=== PATIENT | female | born 1955 | race Caucasian/White ===

== ENCOUNTER → 2016-08-11 | Outpatient (CLI) | payer BC ==
--- NOTE | 2016-08-11 09:50 | MR ---
"EXAMINATION TYPE: MR lumbar spine wo con DATE OF EXAM: 08/11/2016 8:24 AM COMPARISON: Prior MRI lumbar spine May 16, 2013 HISTORY: Other spondylosis with myelopathy per order. Sharp low back pain for 2 months after fall on ice injury per patient with pain radiating into right buttocks and outer thigh. TECHNIQUE: Multiplanar, multisequence imaging of the lumbar spine is performed without IV contrast. FINDINGS: Sagittal images of the lumbar spine show alignment to appear satisfactory. There is new mil d height loss with suggestion of diminished T1 and increased T2 signal consistent with subacute compr ession fracture involving superior L1 endplate correlates with history of trauma 2 months ago. There is redemonstration of multilevel disc desiccation. There is redemonstration of mild to moderate disc space narrowing L1-L2 level and moderate to advanced disc space narrowing with vacuum disc phenomeno n and mild spurring at L5-S1 level. The conus medullaris remains normal in position and signal ending at mid L1 vertebral body level. The bone marrow signal intensity is overall heterogeneous. There is mild multilevel anterior spurring present. Axial images show the T12-L1 disc space to appear within normal limits. There is some anterior spinal canal effacement due to slight posterior retropulsion on axial image 28 involving central and left p aracentral spinal canal. Axial images at L1-L2 level show persistent mild to moderate broad disc bulge mildly effacing anterio r thecal sac, bilateral neural foramina remain patent. Axial images at L2-L3 level is felt to remain within normal limits. Axial images at L3-L4 level show mild broad based posterior disc protrusion minimally effacing anteri or thecal sac on axial image 13, bilateral neural foramina are patent. Axial images at L4-L5 level show mild to moderate facet degenerative changes and ligamentum flavum hy pertrophy with mild broad-based posterior disc protrusion minimally effacing anterior thecal sac on a xial image 8. There is mild bilateral anterior inferior neural foraminal narrowing at this level iden tified. No significant change from prior study is seen. Axial images at the L5-S1 level show mild facet degenerative changes bilaterally. There is central di sc protrusion seen. Spinal canal is preserved. There is mild to moderate bilateral anterior inferior neural foraminal narrowing at this level redemonstrated. No significant change from prior study is se en. On current exam there are small dependent gallstones now identified on axial image 18. There are susp ected simple parapelvic cysts in both kidneys seen better on current study versus prior. IMPRESSION: New mild compression fracture suspected subacute in age with some mild posterior retropul romelia of the superior posterior L1 vertebra effacing spinal canal. Multilevel degenerative changes in lumbar spine are redemonstrated as detailed above without significant progression from prior exam. A Yellow message has been communicated to Mathew West MD via the [employer] | Critical Result sy stem on 08/11/2016 9:47 AM, Message ID [id number]."
== END | disposition home or self-care (01) ==
LOC: RADMRIMAIN 07:46
PROVIDERS: ATTEND Internal Medicine
DX: M51.36 Other intervertebral disc degeneration, lumbar region (principal); M51.26 Other intervertebral disc displacement, lumbar region; M48.06 Spinal stenosis, lumbar region; M47.16 Other spondylosis with myelopathy, lumbar region
CPT/HCPCS: 72148

== ENCOUNTER → 2017-04-26 | Outpatient (CLI) | payer BC ==
--- NOTE | 2017-05-19 11:53 | P.ARTDOP ---
Arterial Doppler LOWER EXTREMITY ARTERIAL DOPPLER: DATE OF SERVICE: 04/26/2017 Reason for study: Right leg pain. Doppler waveforms: Multiphasic bilaterally throughout. Pulse volume recording: Normal configurations. Pressure gradients: None. Ankle-brachial indices: Greater than 1 bilaterally. Toe pressures: [] on the right, [] on the left Impression: Normal study.
--- NOTE | 2017-05-26 11:47 | P.ARTDOP ---
Arterial Doppler LOWER EXTREMITY ARTERIAL DOPPLER: DATE OF SERVICE: 04/26/[address] right leg pain Doppler wavmultiphasic bilaterally throughout Pulse volume recording: normal configuration Pressure gradiants none Ankle-brachial indices: [greater than one bilaterally. Toe pressures: [] on the right, [] on the left Impression: Normal study
== END | disposition home or self-care (01) ==
LOC: RADUSWWP 10:23
PROVIDERS: ATTEND Internal Medicine
DX: I73.9 Peripheral vascular disease, unspecified (principal)
CPT/HCPCS: 93923

== ENCOUNTER 2020-08-06 12:10 | Observation (INO) | payer BC ==
[2020-08-06] MEDS ORDERED: AMPICILLIN-SULBACTAM 3 GM in SODIUM CHLORIDE 0.9% 100 ML IVPB STA (12:49)
[2020-08-06] MEDS ORDERED: SODIUM CHLORIDE 0.9% 1,000 ML IV STA (12:49)
[2020-08-06] MEDS ORDERED: ONDANSETRON 4 MG/2 ML VIAL IVP STA (12:49)
[2020-08-06] MEDS ORDERED: NALOXONE 0.4 MG/ML 1 ML VIAL IV PRN (13:17)
--- NOTE | 2020-08-06 13:17 | ED ---
Skin/Abscess/FB HPI - General Chief complaint: Skin/Abscess/Foreign Body Stated complaint: neck pain Time Seen by Provider: 08/06/20 12:19 Source: patient Limitations: no limitations - History of Present Illness Initial comments: Patient is a 65-year-old female presenting to the emergency Department with complaints of an abscess on her neck 1 week. Patient states it started out as a small pimple and rapidly enlarged. Patient went to her primary care doctor's office 5 days ago, was started on antibiotics, Augmentin and clindamycin and was also sent for a CT of her neck. Patient states that medications have been making her very nauseous, vomiting and she's not been able to keep anything down. Patient went for his computed tomography scan yesterday and her doctor's office called her today and told her to go into the ER for admission. Patient states the abscess on the left side of her neck seems to be getting bigger as well. She also states she noticed some redness extending down her neck. She denies any fever or chills. She has had nausea and vomiting and a little bit of diarrhea from her medications. She denies any chest pain or shortness of breath. No further complaints at this time. Upon arrival to the ER, she is slightly tachycardia at 109, rest of vitals are normal. - Related Data Home Medications Medication Instructions Recorded Confirmed Gabapentin [Neurontin] 300 mg PO BID 08/10/17 08/06/20 Ramipril 10 mg PO DAILY 08/10/17 08/06/20 Amoxic-Pot Clav 875-125Mg 1 tab PO Q12HR 08/06/20 08/06/20 [Augmentin 875-125] Ciprofloxacin HCl [Cipro] 500 mg PO Q12HR 08/06/20 08/06/20 HYDROcodone/APAP 5-325MG [[place] 1 tab PO BID 08/06/20 08/06/20 5-325] Zolpidem [Ambien] 10 mg PO HS 08/06/20 08/06/20 Allergies Allergy/AdvReac Type Severity Reaction Status Date / Time Sulfa (Sulfonamide Allergy Swelling Verified 08/06/20 15:12 Antibiotics) Review of Systems ROS Statement: Those systems with pertinent positive or pertinent negative responses have been documented in the HPI. ROS Other: All systems not noted in ROS Statement are negative. Past Medical History Past Medical History: Hypertension Additional Past Medical History / Comment(s): HYPOGLYCEMIC History of Any Multi-Drug Resistant Organisms: None Reported Past Surgical History: Appendectomy, Section, Tonsillectomy Additional Past Surgical History / Comment(s): COLONOSCOPY Past Anesthesia/Blood Transfusion Reactions: No Reported Reaction Past Psychological History: No Psychological Hx Reported Smoking Status: Current every day smoker Past Alcohol Use History: None Reported Past Drug Use History: None Reported - Past Family History Father Family Medical History: Cancer Mother Family Medical History: Cancer Sister(s) Family Medical History: Cancer General Exam - General Exam Comments Initial Comments: GENERAL: Patient is well-developed and well-nourished. Patient is nontoxic and in no acute distress. HEAD: Atraumatic, normocephalic. EYES: Pupils equal round and reactive to light, extraocular movements intact, sclera anicteric, conjunctiva are normal. Eyelids were unremarkable. ENT: TMs normal, nares patent, oropharynx clear without exudates. Moist mucous membranes. NECK: Normal range of motion, supple without lymphadenopathy or JVD. LUNGS: Unlabored respirations. Breath sounds clear to auscultation bilaterally and equal. No wheezes rales or rhonchi. HEART: Regular rate and rhythm without murmurs, rubs or gallops. ABDOMEN: Soft, nontender, normoactive bowel sounds. No guarding, no rebound. No masses appreciated. : Deferred MUSCULOSKELETAL: Normal extremities with adequate strength and normal range of motion, no pitting or edema. No clubbing or cyanosis. NEUROLOGICAL: Patient is alert and oriented x 3. Motor and sensory are also intact. Cranial nerves II through XII grossly intact. Symmetrical smile. Normal speech, normal gait. PSYCH: Normal mood, normal affect. SKIN: Warm, Dry, normal turgor, no rashes. Patient has a 3 cm in diameter abscess appearing structure on the left side of her neck near her SCM muscle. This is very tender to the touch, erythematous, fluctuant in nature. She has a very faint red line starting to go distally down the left side of her neck. Limitations: no limitations Course Vital Signs 08/06/20 08/06/20 12:11 14:11 Temperature 98.4 F 98.3 F Pulse Rate 109 H 83 Respiratory 18 18 Rate Blood Pressure 153/74 174/80 O2 Sat by Pulse 98 95 Oximetry Medical Decision Making - Medical Decision Making Patient is a 65-year-old female here sent in by her PCP regarding an abscess in the left side of her neck 5 days. She is currently on clindamycin, Augmentin without improvement in this abscess. She has had severe nausea and vomiting with these medications. A CT soft tissue neck with contrast was performed yesterday at [facility] and the impression reads "irregular cystic lesion measuring 3 x 2 x 2 cm centered in the left parotid tell either tightly abuts or involves the anterior margin of the upper left sternocleidomastoid muscle. While in ab scess is possible, an invading cystic salivary gland tumor should be excluded, recommend ENT referral." Patient will be admitted, started on IV antibiotics and ENT referral. Dr. West is accepting. Blood cultures are pending. Case discussed with Dr. Lundberg. - Lab Data Result diagrams: 08/06/20 13:00 08/06/20 13:00 Lab Results 08/06/20 08/06/20 08/06/20 Range/Units 13:00 13:00 13:00 WBC 10.1 (3.8-10.6) k/uL RBC 5.44 H (3.80-5.40) m/uL Hgb 16.7 H (11.4-16.0) gm/dL Hct 50.2 H (34.0-46.0) % MCV 92.3 (80.0-100.0) fL MCH 30.7 (25.0-35.0) pg MCHC 33.3 (31.0-37.0) g/dL RDW 12.0 (11.5-15.5) % Plt Count 303 (150-450) k/uL MPV 7.3 Neutrophils % 79 % Lymphocytes % 12 % Monocytes % 7 % Eosinophils % 1 % Basophils % 0 % Neutrophils # 7.9 H (1.3-7.7) k/uL Lymphocytes # 1.2 (1.0-4.8) k/uL Monocytes # 0.7 (0-1.0) k/uL Eosinophils # 0.1 (0-0.7) k/uL Basophils # 0.0 (0-0.2) k/uL ESR 34 H (0-20) mm/hr Sodium 139 (137-145) mmol/L Potassium 4.0 (3.5-5.1) mmol/L Chloride 103 (98-107) mmol/L Carbon Dioxide 25 (22-30) mmol/L Anion Gap 11 mmol/L BUN 18 H (7-17) mg/dL Creatinine 0.67 (0.52-1.04) mg/dL Est GFR (CKD-EPI)AfAm >90 (>60 ml/min/1.73 sqM) Est GFR (CKD-EPI)NonAf >90 (>60 ml/min/1.73 sqM) Glucose 136 H (74-99) mg/dL Calcium 9.8 (8.4-10.2) mg/dL Total Bilirubin 0.5 (0.2-1.3) mg/dL AST 31 (14-36) U/L ALT 11 (4-34) U/L Alkaline Phosphatase 102 (38-126) U/L C-Reactive Protein 48.0 H (<10.0) mg/L Total Protein 7.5 (6.3-8.2) g/dL Albumin 4.3 (3.5-5.0) g/dL Coronavirus (PCR) Not Detected (Not Detectd) Disposition Clinical Impression: Abscess of neck, Nausea & vomiting, Failure of outpatient treatment Disposition: ADMITTED IP TO THIS [facility] Condition: Stable Decision Date: 08/06/20 Decision Time: 13:17
[2020-08-06] MEDS ORDERED: ONDANSETRON 4 MG/2 ML VIAL IVP PRN (13:18)
[2020-08-06] MEDS ORDERED: ACETAMINOPHEN TAB 325 MG TAB PO PRN (13:18)
[2020-08-06 13:20] LABS: Basophils % (A) 0 %; Eosinophils # (A) 0.1 k/uL (0-0.7); Eosinophils % (A) 1 %; HCT 50.2 % (34.0-46.0); HGB 16.7 gm/dL (11.4-16.0); Lymphocytes # (A) 1.2 k/uL (1.0-4.8); Lymphocytes % (A) 12 %; MCH 30.7 pg (25.0-35.0); MCHC 33.3 g/dL (31.0-37.0); MCV 92.3 fL (80.0-100.0); Mean Platelet Volume 7.3; Monocytes # (A) 0.7 k/uL (0-1.0); Monocytes % (A) 7 %; Neutrophils # (A) 7.9 k/uL (1.3-7.7); Neutrophils % (A) 79 %; Platelet Count 303 k/uL (150-450); RBC 5.44 m/uL (3.80-5.40); WBC 10.1 k/uL (3.8-10.6)
[2020-08-06 13:28] LABS: ALT 11 U/L (4-34); AST 31 U/L (14-36); African American GFR (CKD) >90 (>60 ml/min/1.73 sqM); Albumin 4.3 g/dL (3.5-5.0); Alkaline Phosphatase 102 U/L (38-126); Anion Gap 11 mmol/L; Blood Urea Nitrogen 18 mg/dL (7-17); Calcium 9.8 mg/dL (8.4-10.2); Carbon Dioxide 25 mmol/L (22-30); Chloride 103 mmol/L (98-107); Glucose 136 mg/dL (74-99); Non-African American GFR(CKD) >90 (>60 ml/min/1.73 sqM); Sodium 139 mmol/L (137-145); Total Bilirubin 0.5 mg/dL (0.2-1.3); Total Protein 7.5 g/dL (6.3-8.2)
[2020-08-06 15:07] LABS: Erythrocyte Sedimentation Rate 34 mm/hr (0-20)
[2020-08-06] MEDS: GABAPENTIN 300 MG CAP PO SCH (20:48)
[2020-08-06] MEDS: ZOLPIDEM 5 MG TAB PO SCH (20:49)
[2020-08-06] MEDS ORDERED: ZOLPIDEM 10 MG TAB PO SCH (21:00)
[2020-08-06] MEDS ORDERED: HYDROcodone/APAP 5-325MG 1 EACH TAB PO SCH (21:00)
[2020-08-06] MEDS: AMPICILLIN-SULBACTAM 3 GM in SODIUM CHLORIDE 0.9% 100 ML IVPB SCH (21:12)
--- NOTE | 2020-08-06 22:33 | CONS ---
CONSULTATION REASON FOR CONSULTATION: Left neck abscess. HISTORY: This is a 65-year-old white female with an approximate 5-day history of progressively enlarging swollen erythematous area of the left upper neck. She was initially placed on clindamycin and Augmentin without improvement and started having nausea with these medications. She had CT scan of the neck yesterday at [facility], which showed a 3.3 cm irregular cystic-appearing lesion centered in the left tail of parotid abutting the anterior margin of the sternocleidomastoid muscle. She still had symptoms this morning and therefore was referred to the hospital for further evaluation. She was admitted for IV antibiotics and consultation. She has not had difficulties like this in the past. She has no sore throat or fever. She has had no chills. She has no dysphagia or hoarseness. PAST MEDICAL HISTORY: Positive for hypertension. PAST SURGICAL HISTORY: Appendectomy, , tonsillectomy, colonoscopy. SOCIAL HISTORY: Smokes. Does not drink alcohol. FAMILY HISTORY: Liver cancer. MEDICATIONS: Neurontin, [place]. Ramipril. ALLERGIES: SULFA. REVIEW OF SYSTEMS: Systems of pertinent positive and negative response are documented in HPI. Review of systems all other systems not noted in our review of systems statement are negative. PHYSICAL EXAM: Vital signs: Patient is afebrile. Pulse was 109, respiratory 18, blood pressure 153/74, pulse ox 98 in the ER. GENERAL: Well-developed adult white female in no acute distress. She is alert, awake, and oriented x3. HEENT. HEAD: Normocephalic and atraumatic. Ears bilaterally canals are clear membranes unremarkable and mobile. Nose shows no drainage or obstruction. Mouth and throat shows status post tonsillectomy. No abnormal masses or lesions. No erythema noted. NECK: Supple. There is approximate 3 cm erythematous, tender, fluctuant abscess left upper neck below the mandible. Very thin skin overlying this. ASSESSMENT: Left neck abscess. PLAN: I have recommended incision and drainage of this abscess. I reviewed the indications, alternatives, potential benefits, risks of the procedure with the patient with risks including, but not inclusive of the risk of local anesthesia, bleeding, infection, scarring, recurrent abscess, need for further procedures in the future depending on healing and response to medications, numbness, decreased facial movement. The patient understands these risks and agrees to proceed. This is performed at bedside and approximate 4 mL of purulence was drained from this abscess. Culture was obtained and is pending. Her care otherwise will be overseen by her admitting physician including IV antibiotics. She is on Unasyn presently. Dependent on her disposition, it is possible that she could be discharged tomorrow but would have to be on appropriate oral antibiotics for this. She can follow up in our office on an as-needed basis depending on how she progresses. If her sinus symptoms resolve completely, then follow up as needed. If she has persistent or recurrent issues with the abscess, then certainly would have her follow up in our office as an outpatient. If there are questions or concerns, please free to contact me. Culture is pending and again we will leave the followup on the culture to her admitting and outpatient primary care physician. MMJANETHL / IJN: [id number] /
--- NOTE | 2020-08-06 22:38 | PCN ---
PROCEDURE NOTE PROCEDURE NOTE: PREOPERATIVE DIAGNOSIS: Left neck abscess. POSTOP DIAGNOSIS: Left neck abscess. PROCEDURE PERFORMED: Incision, drainage of left neck abscess. ANESTHESIA: Local. ESTIMATED BLOOD LOSS: Minimal. Less than 1 mL. COMPLICATIONS: None. INDICATIONS: A 65-year-old white female with progressive left neck abscess. FINDINGS: Left neck abscess as outlined in the history and physical. PROCEDURE DETAILS: The patient was in her hospital bed in a supine position. Informed consent was obtained. The patient is prepped and draped in usual aseptic fashion. 1% lidocaine with 1:100,000 epinephrine was infused subcutaneously in a field block fashion with a total of 2 mL used. This was left for work for 10 minutes for vasoconstrictive effect. An approximate 2 cm transverse incision was placed directly over the abscess and immediately purulence was obtained, which was cultured. There was some caseous debris also. The abscess cavity was entered with a blunt hemostat and opened bluntly further to express more purulence. Once the purulence cleared and hemostasis was good with local pressure, the procedure was ended. Sterile dressing was placed. The patient tolerated the procedure well. No complications. MMODL / IJN: [id number] /
[2020-08-06] MEDS: HYDROcodone/APAP 5-325MG 1 EACH TAB PO PRN (23:09)
[2020-08-07] MEDS: SODIUM CHLORIDE 0.9% 1,000 ML IV SCH ×2 (01:49→21:38)
[2020-08-07] MEDS: AMPICILLIN-SULBACTAM 3 GM in SODIUM CHLORIDE 0.9% 100 ML IVPB SCH ×3 (05:08→21:37)
[2020-08-07] MEDS: HYDROcodone/APAP 5-325MG 1 EACH TAB PO PRN ×3 (06:50→21:36)
[2020-08-07] MEDS: GABAPENTIN 300 MG CAP PO SCH ×2 (08:26→20:10)
[2020-08-07] MEDS: lisinopriL 20 MG TAB PO SCH (08:29)
[2020-08-07] MEDS: HEPARIN SODIUM,PORCINE 5,000 UNIT/ML 1 ML VIAL SQ SCH ×2 (08:37→19:26)
[2020-08-07 10:03] LABS: Basophils % (A) 0 %; Eosinophils # (A) 0.2 k/uL (0-0.7); Eosinophils % (A) 3 %; HCT 45.7 % (34.0-46.0); HGB 14.1 gm/dL (11.4-16.0); Lymphocytes # (A) 1.6 k/uL (1.0-4.8); Lymphocytes % (A) 26 %; MCHC 30.9 g/dL (31.0-37.0); MCV 93.8 fL (80.0-100.0); Mean Platelet Volume 7.5; Monocytes # (A) 0.4 k/uL (0-1.0); Monocytes % (A) 6 %; Neutrophils # (A) 3.9 k/uL (1.3-7.7); Neutrophils % (A) 63 %; Platelet Count 271 k/uL (150-450); RBC 4.88 m/uL (3.80-5.40); RDW 12.7 % (11.5-15.5); WBC 6.2 k/uL (3.8-10.6)
[2020-08-07 10:06] LABS: ALT 10 U/L (4-34); AST 28 U/L (14-36); African American GFR (CKD) >90 (>60 ml/min/1.73 sqM); Albumin 3.4 g/dL (3.5-5.0); Alkaline Phosphatase 85 U/L (38-126); Anion Gap 6 mmol/L; Blood Urea Nitrogen 13 mg/dL (7-17); Calcium 8.5 mg/dL (8.4-10.2); Carbon Dioxide 26 mmol/L (22-30); Chloride 105 mmol/L (98-107); Glucose 180 mg/dL (74-99); Non-African American GFR(CKD) >90 (>60 ml/min/1.73 sqM); Sodium 137 mmol/L (137-145); Total Bilirubin 0.6 mg/dL (0.2-1.3); Total Protein 6.1 g/dL (6.3-8.2)
[2020-08-07] MEDS: NICOTINE 21MG/24HR PATCH TRANSDERM SCH (14:06)
[2020-08-07] MEDS: ZOLPIDEM 5 MG TAB PO SCH (20:10)
[2020-08-08 01:52] VITALS: PULSE 56
[2020-08-08] MEDS: HEPARIN SODIUM,PORCINE 5,000 UNIT/ML 1 ML VIAL SQ SCH ×2 (03:50→10:17)
[2020-08-08] MEDS: AMPICILLIN-SULBACTAM 3 GM in SODIUM CHLORIDE 0.9% 100 ML IVPB SCH (05:18)
[2020-08-08] MEDS: HYDROcodone/APAP 5-325MG 1 EACH TAB PO PRN (06:23)
[2020-08-08] MEDS ORDERED: PANTOPRAZOLE 40 MG TABLET PO SCH (07:30)
--- NOTE | 2020-08-08 07:54 | P.DS ---
Providers Date of admission: 08/06/20 13:32 Expected date of discharge: 08/08/20 Attending physician: Mathew West Consults: 08/06/20 13:18 Consult Physician Urgent Consulting Provider: Prashant Tijerina Reason/Comments: Abscess on the neck, failed outpatient treatment Do you want consulting provider notified?: Yes Primary care physician: Mathew West [facility] Course: This is a 65-year-old female one of my patient with the patient's medical history significant for hypertension and hypertensive cardio vascular disease with left upper hypertrophy history of hyperlipidemia, history of chronic drug use and dependence with chronic obstructive pulmonary disease, patient presented to my office about a week ago with increased swelling and tenderness to the left submandibular area suggestive of possible abscess, she was started on oral antibiotic in the form of some prophylaxis and as well as Augmentin and she was sent for a CT of the neck and soft tissue that confirmed the absence the patient did not do well she was supposed to follow-up as an outpatient with an EGD however she developed to have a significant pain and discomfort and she was having trouble opening her mouth she was directed to go to the ER for an I&D with an ENT, patient was admitted to the hospital for the diagnosis of left neck abscess was seen in consultation by Dr. Smith underwent I&D at the bedside, and she was started on IV antibiotic in the form of Unasyn 3 g IV piggyback every 6 hours, cultures were sent and she was admitted to the hospital for further IV antibiotic after obtaining blood culture as well as, patient pain was controlled using [place], and she was admitted for evaluation and treatment. 08/08: Patient has been afebrile, heart rate 56, blood pressure 124/77, pulse ox 94% on room air. CBC is unremarkable. Electrolytes and renal function normal. Blood sugar 180. Liver function tests normal. Blood culture shows no growth. Wound culture has been finalized with no growth after 48 hours. Patient will be discharged home today on Augmentin to complete course and follow-up with Dr. Smith as an outpatient. DISCHARGE DIAGNOSES 1. Left submandibular abscess status post I&D. 2. Hypertension and hypertensive cardio vascular disease. 3. Hyperlipidemia. 4. 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 5. Insomnia. 6. Chronic tobacco use and dependence. DISCHARGE PLAN Home Impression and plan of care have been directed as dictated by the signing physician. Desirae Aviles nurse practitioner acting as scribe for signing physician. Patient Condition at Discharge: Good Plan - Discharge Summary Discharge Rx Participant: No New Discharge Prescriptions: New Amoxicillin/Potassium Clav [Augmentin 875-125 Tablet] 1 each PO Q12HR #14 tab Continue Ramipril 10 mg PO DAILY Gabapentin [Neurontin] 300 mg PO BID Zolpidem [Ambien] 10 mg PO HS HYDROcodone/APAP 5-325MG [[place] 5-325] 1 tab PO BID Amoxic-Pot Clav 875-125Mg [Augmentin 875-125] 1 tab PO Q12HR Discontinued Ciprofloxacin HCl [Cipro] 500 mg PO Q12HR Discharge Medication List Gabapentin [Neurontin] 300 mg PO BID 08/10/17 [History] Ramipril 10 mg PO DAILY 08/10/17 [History] Amoxic-Pot Clav 875-125Mg [Augmentin 875-125] 1 tab PO Q12HR 08/06/20 [History] HYDROcodone/APAP 5-325MG [[place] 5-325] 1 tab PO BID 08/06/20 [History] Zolpidem [Ambien] 10 mg PO HS 08/06/20 [History] Amoxicillin/Potassium Clav [Augmentin 875-125 Tablet] 1 each PO Q12HR #14 tab 08/08/20 [Rx] Follow up Appointment(s)/Referral(s): Mathew West MD [Primary Care Provider] - 1 Week Prashant Tijerina MD [STAFF PHYSICIAN] - 1 Week Activity/Diet/Wound Care/Special Instructions: Continue diet as tolerated. fluids are encouraged. continue antibitotics as directed by physician in its entirety. follow up with physicians as directed. Keep incisional area clean and dry. Call physicians with any questions comments concerns worsening returning symptoms, fever 101.1 or higher, not tolerating diet or fluids, pain not controlled by medications prescribed. Discharge Disposition: HOME SELF-CARE
[2020-08-08] MEDS: SODIUM CHLORIDE 0.9% 1,000 ML IV SCH ×2 (07:57→09:33)
[2020-08-08 08:38] VITALS: BP 124/77; RESP 14; TEMP 97.9
[2020-08-08] MEDS: GABAPENTIN 300 MG CAP PO SCH (09:32)
[2020-08-08] MEDS: lisinopriL 20 MG TAB PO SCH (09:32)
[2020-08-08] MEDS: NICOTINE 21MG/24HR PATCH TRANSDERM SCH (09:34)
--- NOTE | 2020-08-11 10:00 | P.HPIM ---
History of Present Illness H&P Date: 08/07/20 Chief Complaint: Left neck Abscess This is a 65-year-old female one of my patient with the patient's medical history significant for hypertension and hypertensive cardio vascular disease with left upper hypertrophy history of hyperlipidemia, history of chronic drug use and dependence with chronic obstructive pulmonary disease, patient presented to my office about a week ago with increased swelling and tenderness to the left submandibular area suggestive of possible abscess, she was started on oral antibiotic in the form of some prophylaxis and as well as Augmentin and she was sent for a CT of the neck and soft tissue that confirmed the absence the patient did not do well she was supposed to follow-up as an outpatient with an EGD however she developed to have a significant pain and discomfort and she was having trouble opening her mouth she was directed to go to the ER for an I&D with an ENT, patient was admitted to the hospital for the diagnosis of left neck abscess was seen in consultation by Dr. Smith underwent I&D at the bedside, and she was started on IV antibiotic in the form of Unasyn 3 g IV piggyback every 6 hours, cultures were sent and she was admitted to the hospital for further IV antibiotic after obtaining blood culture as well as, patient pain was controlled using [place], and she was admitted for evaluation and treatment. Review of Systems Constitutional: Reports chronic pain, Reports fatigue, Denies anorexia, Denies fever, Denies malaise, Denies sweats, Denies weakness, Denies weight gain Eyes: denies blurred vision, denies bulging eye, denies decreased vision Ears: deny: decreased hearing Ears, nose, mouth and throat: Reports ant. neck pain, Reports neck fullness/pressure, Reports neck lump, Denies dysphagia, Denies headache, Denies nose pain, Denies odynophagia, Denies post-nasal drip, Denies sinus pressure, Denies swelling in mouth, Denies swelling in throat, Denies sore throat, Denies vertigo, Denies voice changes Cardiovascular: Reports decreased exercise tolerance, Reports shortness of breath, Denies chest pain, Denies claudication, Denies leg edema, Denies rapid heart beat, Denies syncope Respiratory: Reports dyspnea, Denies congestion, Denies cough, Denies cough with sputum, Denies home oxygen, Denies sleep apnea, Denies snoring, Denies wheezing Gastrointestinal: Denies abdominal pain, Denies bloating, Denies BRBPR, Denies heartburn, Denies loss of appetite, Denies melena, Denies nausea, Denies vomiting Genitourinary: Denies dysuria, Denies nocturia Menstruation: Reports postmenopausal Musculoskeletal: Reports low back pain, Denies atrophy, Denies frequent falls, Denies morning stiffness, Denies redness of joints Musculoskeletal: absent: ankle pain, ankle stiffness, ankle swelling, elbow pain, elbow stiffness, elbow swelling, foot pain, foot stiffness, foot swelling, hand pain, hand stiffness, hand swelling, hip pain, hip stiffness, hip swelling, knee pain, knee stiffness, knee swelling, shoulder pain, shoulder stiffness, shoulder swelling, wrist pain, wrist stiffness, wrist swelling Integumentary: Denies pruritus, Denies rash Neurological: Denies numbness, Denies weakness Psychiatric: Reports anxiety Endocrine: Denies fatigue, Denies weight change Past Medical History Past Medical History: COPD, Hyperlipidemia, Hypertension, Osteoarthritis (OA) Additional Past Medical History / Comment(s): HYPOGLYCEMIC History of Any Multi-Drug Resistant Organisms: None Reported Past Surgical History: Appendectomy, Section, Tonsillectomy Additional Past Surgical History / Comment(s): COLONOSCOPY Past Anesthesia/Blood Transfusion Reactions: No Reported Reaction Past Psychological History: No Psychological Hx Reported Smoking Status: Current every day smoker (Patient smokes about pack every day since she was a teenager.) Past Alcohol Use History: None Reported Past Drug Use History: None Reported - Past Family History Father Family Medical History: Cancer Mother Family Medical History: Cancer Sister(s) Family Medical History: Cancer Medications and Allergies Home Medications Medication Instructions Recorded Confirmed Type Gabapentin [Neurontin] 300 mg PO BID 08/10/17 08/06/20 History Ramipril 10 mg PO DAILY 08/10/17 08/06/20 History Amoxic-Pot Clav 875-125Mg 1 tab PO Q12HR 08/06/20 08/06/20 History [Augmentin 875-125] HYDROcodone/APAP 5-325MG [[place] 1 tab PO BID 08/06/20 08/06/20 History 5-325] Zolpidem [Ambien] 10 mg PO HS 08/06/20 08/06/20 History Amoxicillin/Potassium Clav 1 each PO Q12HR #14 tab 08/08/20 Rx [Augmentin 875-125 Tablet] Allergies Allergy/AdvReac Type Severity Reaction Status Date / Time Sulfa (Sulfonamide Allergy Swelling Verified 08/06/20 15:12 Antibiotics) Physical Exam Vitals: Vital Signs Temp Pulse Pulse Resp BP BP Pulse Ox 08/07/20 01:30 98.8 F 63 16 114/69 95 08/06/20 20:50 18 08/06/20 20:25 98.4 F 74 18 130/70 95 08/06/20 15:05 98.1 F 78 18 115/75 95 08/06/20 14:11 98.3 F 83 18 174/80 95 08/06/20 12:11 98.4 F 109 H 18 153/74 98 Intake and Output 08/06/20 08/07/20 08/07/20 22:59 06:59 14:59 Intake Total 240 Balance 240 Intake: Oral 240 Other: Voiding Method Toilet # Voids 2 1 Physical examination: HEENT: Head is atraumatic, normocephalic, pupils were equal round reactive to light and recommendation, extraocular muscle movement were intact, sclera nonic teric, conjunctiva was slightly pale, mucus complains of the mouth are somewhat dry, there severe tenderness to the left submandibular area acidosis of of an abscess of the anterior neck, there is minimal restriction to her mouth opening. Neck: Supple severe tenderness to the left submandibular area with an abscess that is severely tender to palpation, decreased carotid show bilaterally. Chest: Decreased breath sounds at the bases, few rhonchi, no expiratory wheezes, no chest wall tenderness, no intercostal retractions. Heart: First heart sound is depressed, second heart sounds normal, there is no gallop or murmur. Abdomen: Soft, nontender, nondistended, positive bowel sounds. Extremities: There is no edema, no calf tenderness, dorsalis pedis +2 bilaterally. Neurologic examination: Patient is awake alert and oriented 3, cranial nerves II through XII appear grossly intact, muscle power where 4 out of 5 in upper and lower extremities bilaterally. Results CBC & Chem 7: 08/07/20 08:59 08/07/20 08:59 Labs: Abnormal Lab Results - Last 24 Hours (Table) 08/06/20 08/06/20 Range/Units 13:00 13:00 RBC 5.44 H (3.80-5.40) m/uL Hgb 16.7 H (11.4-16.0) gm/dL Hct 50.2 H (34.0-46.0) % Neutrophils # 7.9 H (1.3-7.7) k/uL ESR 34 H (0-20) mm/hr BUN 18 H (7-17) mg/dL Glucose 136 H (74-99) mg/dL C-Reactive Protein 48.0 H (<10.0) mg/L Microbiology - Last 24 Hours (Table) 08/06/20 17:00 Gram Stain - Preliminary Neck Wound Culture - Preliminary Thrombosis Risk Factor Assmnt - DVT/VTE Prophylaxis DVT/VTE Prophylaxis: Pharmacologic Prophylaxis ordered, Mechanical Prophylaxis ordered - Choose All That Apply Any of the Below Risk Factors Present?: Yes Each Factor Represents 1 point: Obesity (BMI >25) Each Risk Factor Represents 2 Points: Age 61-74 years Other congenital or acquired thrombophilia - If yes, enter type in comment: No Thrombosis Risk Factor Assessment Total Risk Factor Score: 3 Thrombosis Risk Factor Assessment Level: Moderate Risk Assessment and Plan Assessment: Assessment and plan: 1. Left submandibular abscess status post I&D. Continue with IV antibiotic in the form of Unasyn 3 g IV piggyback every 6 hours, continue with [place] for pain control, continue IV fluid in the form of normal saline as any 5 mL an hour, repeat the patient's CBC and CMP the next 24 hours, check blood cultures, obtain the culture from the abscess as well. 2. Hypertension and hypertensive cardio vascular disease continue patient on ramipril 10 mg orally twice every day. 3. Hyperlipidemia. Continue patient on low-cholesterol diet. 4. 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 Continue gabapentin 300 mg orally twice every day. 5. Insomnia. Continue patient on zolpidem 10 mg orally once every bedtime. 6. Chronic tobacco use and dependence. Smoking cessation and counseling an increased risk of CAD, CVA, and malignancy. Continue nicotine patch 21 mg once every day. 7. DVT prophylaxis. Heparin 5000 units subcutaneously every 8 hours. 8. GI prophylaxis. Continue Protonix 40 mg orally once every day. 9. Admit to inpatient. Estimate a length of stay 2 midnights. 10. Patient is full code.
== END 2020-08-08 10:25 | disposition home or self-care (01) ==
LOC: EC 12:10 → INTOOBSV 13:32 → 6PED 13:32 → UNDODISIN 08-08 10:25
PROVIDERS: ADMIT Internal Medicine; ATTEND Internal Medicine
DX: K12.2 Cellulitis and abscess of mouth (principal); I11.9 Hypertensive heart disease without heart failure; E78.5 Hyperlipidemia, unspecified; G47.00 Insomnia, unspecified; M47.816 Spondylosis without myelopathy or radiculopathy, lumbar region; G62.9 Polyneuropathy, unspecified; J44.9 Chronic obstructive pulmonary disease, unspecified; M19.90 Unspecified osteoarthritis, unspecified site; F17.210 Nicotine dependence, cigarettes, uncomplicated; E66.9 Obesity, unspecified; Z68.29 Body mass index [BMI] 29.0-29.9, adult; R11.2 Nausea with vomiting, unspecified; R19.7 Diarrhea, unspecified; T36.0X5A Adverse effect of penicillins, initial encounter; T36.1X5A Adverse effect of cephalosporins and other beta-lactam antibiotics, initial encounter; T36.8X5A Adverse effect of other systemic antibiotics, initial encounter; Z79.899 Other long term (current) drug therapy; Z90.49 Acquired absence of other specified parts of digestive tract; Z88.2 Allergy status to sulfonamides; Z20.822 Contact with and (suspected) exposure to COVID-19; Z80.0 Family history of malignant neoplasm of digestive organs; Z80.9 Family history of malignant neoplasm, unspecified
CPT/HCPCS: 10061; 96366 ×2; 96372 ×2; 96361; 96365; 96375; 99284; 36415; 80053 ×2; 85652; 85025 ×2; 86140; 87040; 87070; 87205; 87635; G0378 ×3; S4990; J1644 ×2; J2405; J0295 ×3

== ENCOUNTER → 2022-05-07 | Outpatient (CLI) | payer BC ==
[2022-05-07 09:43] VITALS: BP 190/76; PULSE 84; RESP 18; TEMP 98.2
--- NOTE | 2022-05-07 14:42 | P.PAINPG ---
PQRS Measure Charge Sheet Comment: HISTORY OF PRESENT ILLNESS: 66 yr old female as a referral from Dr Bronson presents today w severe and chronic LBP x 8 yrs secondary to lumbar fracture, DDD and facet arthropathy without myelopathy for evaluation. Pt states pain level is at 7/10 in intensity, constant, localized in the R lower lumbar region, sharp/ stabbing in character w shooting pain towards the BL knees. Pain is provoked by standing/ walking for periods of 15 min or more. Pain is alleviated by PT x 1 mo which worsened pain, massage integrated w PT, home exercise regimen, ice, medications ([place] from Dr West), topicals, repositioning and rest. PMH: COPD, Hyperlipidemia, HTN, OA PSH: Appendectomy, Section, Tonsillectomy, Colonoscopy SH: Daily tobacco use, No ETOH abuse, No illicit drug use. FH: Fa- CA. Mo- CA. Sis- CA. All: See list Meds: See list REVIEW OF ORGAN SYSTEMS: CONSTITUTIONAL: No fevers or chills. No recent weight loss. NEUROLOGICAL: + numbness and tingling along the distal extremities. No seizure disorders or headaches. MUSCULOSKELETAL: + pain PSYCHIATRIC: Denies current depression or suicidal thoughts. Physical Examinations : Constitutional : Cooperative , not in acute distress . Neurologic : Cranial nerve II to XII intact. No focal neurological deficits. Psychiatric : alert & oriented x 3. Matching mood & appropriate affect. Judgment & insight intact. Musculoskeletal : Cervical Spine Motor strength in the deltoid and biceps: Normal right side. Normal Left side Motor strength biceps and the wrist extensors: Normal right side . Normal left side Motor strength in the triceps muscle: Normal right side. Normal left side Deep tendon reflexes: Normal at the biceps. Normal at Brachioradialis. Normal at triceps Vertebral body tenderness to deep palpation over Cervical facet loading test: positive bilaterally Spurling test: positive bilaterally Neck distraction test: positive bilaterally Светлана sign: positive bilaterally Lumbar spine Motor strength lower extremities ,thigh and legs 5/5 Right side , 5/5 Left side Deep tendon reflexes : Normal Knee Jerk. Normal Ankle Jerk Vertebral body tenderness over L4 Lumbar facet Loading Test: positive Right / positive Left Range of motion of the lumbar spine Flexion 30 degrees, extension 10 degrees Straight Leg Raise test: Left/ Right positive at degree Marla test: positive right / positive left. Severe tenderness over the Sacroiliac joint on the Right / Left sides Gaenslen test: positive bilaterally Seated flexion test: positive bilaterally. Sacral spine : Severe tenderness over the Sacroiliac joint: right side / left side Range of motion: Flexion of the lumbar spine <60 degrees Range of motion: Extension of the lumbar spine <20 degrees Gaenslen's Test positive Galen's Test positive Marla test: positive right side / le ft side Thigh Thrust Test Sacral Thrust Test Imaging: MRI without contrast of the lumbar spine from 04/06/22 reviewed Assessment/ Plan : Lumbar DDD, Lumbar spondylosis Recommendation of R TFESI L4-L5. May need a series of injections, up to 3 within a 6mo period, for optimal pain relief. Risks, benefits of procedure discussed and patient verbalized understanding. Denies aspirin or anti- coagulant use or medical history of diabetes. Protocol for discontinuation/ continuation of medications jaswant procedure discussed. All questions answered. I have spent greater than 30 minutes on patient care today. Dr Chiang was available by phone for the evaluation of this patient. The time was used to review the medical records including relevant urine studies and Prescription history (MAPs), review of the available imaging, evaluation and examination of the patient, coordination of care with the medical staff and if applicable referring physicians, as well as creation of the medical record PQRS Narrative: Smoking Status Current every day smoker Home Medications: Ambulatory Orders Gabapentin [Neurontin] 300 mg PO BID 08/10/17 Ramipril 10 mg PO DAILY 08/10/17 Amoxic-Pot Clav 875-125Mg [Augmentin 875-125] 1 tab PO Q12HR 08/06/20 HYDROcodone/APAP 5-325MG [[place] 5-325] 1 tab PO BID 08/06/20 Zolpidem [Ambien] 10 mg PO HS 08/06/20 Amoxicillin/Potassium Clav [Augmentin 875-125 Tablet] 1 each PO Q12HR #14 tab 08/08/20 Controlled Substance Measures - Controlled Substance Measures Is patient prescribed a controlled substance at discharge?: No
== END ==
LOC: PNWHC3 08:52
PROVIDERS: ATTEND Specialist
DX: M47.816 Spondylosis without myelopathy or radiculopathy, lumbar region (principal); M51.36 Other intervertebral disc degeneration, lumbar region; J44.9 Chronic obstructive pulmonary disease, unspecified; E78.5 Hyperlipidemia, unspecified; I10 Essential (primary) hypertension; M19.90 Unspecified osteoarthritis, unspecified site; F17.200 Nicotine dependence, unspecified, uncomplicated; Z88.2 Allergy status to sulfonamides
CPT/HCPCS: 99211

== ENCOUNTER 2022-06-09 07:25 | Day surgery (SDC) | payer BC ==
[2022-06-05 13:18] VITALS: BMI 29.4
[~2022-06-09 07:25] MED LIST: LACTATED RINGERS 1,000 ML IV SCH
[2022-06-09] MEDS ORDERED: IOPAMIDOL M200 10 ML VIAL ONE (07:54)
[2022-06-09] MEDS ORDERED: DEXAMETHASONE SOD PHOSPHATE 10 MG/ML 1 ML VIAL ONE (07:54)
--- NOTE | 2022-06-09 08:04 | P.PCN ---
Date of Procedure: 06/09/22 Description of Procedure: PREOPERATIVE DIAGNOSIS: Lumbar radiculopathy POSTOPERATIVE DIAGNOSIS: Lumbar radiculopathy PROCEDURE 1. Transforaminal epidural steroid injection under fluoroscopic guidance right L4-L5 2. Lumbar epidurogram IMAGING Fluoroscopy was used, images where saved to the medical record Local anesthesia only PROCEDURE DESCRIPTION / TECHNIQUE: The patient was seen and identified in the preoperative area. Risks, benefits, complications, and alternatives were discussed with the patient. The patient agreed to proceed with the procedure and signed the consent, vital signs were stable prior to the procedure. Patient was taken to the OR and time out was completed. The patient was placed in the prone position on procedure table and a pillow was placed under the abdomen to reduce lumbar lordosis. The lumbosacral area was prepped and draped in the usual sterile fashion. Vital signs were closely monitored during the procedure. Conscious sedation was used. Using oblique fluoroscopy, the chin of the "Ramírez dog" at the pedicle and the skin and deeper tissues just below was localized with 1% lidocaine. Subsequently, a 22-gauge 3.5-inch spinal needle was advanced under a tunneled view fluoroscopic guidance just underneath the chin of the "Ramírez dog". Under lateral fluoroscopy, the needle was then advanced to the posterior border i nterforaminal space. After negative aspiration of CSF and blood and with no paresthesias, 1 mL of Omnipaque-240 contrast dye was injected excellent epidurogram. Subsequently, a solution totalling 2ml of dexamethasone and PFNS was injected after negative aspiration (total of 10mg of dexamethasone was used). The needle was removed intact. COMPLICATIONS: None DISPOSITION: The patient was placed in a supine position and transferred to the recovery area in a stable condition for observation. There was no evidence of lower extremity motor or sensory deficit after the procedure. Patient was discharged from the recovery room after meeting discharge criteria. Home discharge instructions were given to the patient by the staff. The patient was reexamined prior to discharge. Follow up as directed.
[2022-06-09 08:18] VITALS: RESP 15
[2022-06-09 08:23] VITALS: BP 117/77; PULSE 82
--- NOTE | 2022-06-09 08:23 | FL ---
EXAMINATION TYPE: FL guided pain mgmt statistic DATE OF EXAM: 06/09/2022 HISTORY: Fluoroscopy time 4 seconds of fluoroscopy provided. IMPRESSION: 1. Fluoroscopy time.
== END 2022-06-09 08:35 | disposition home or self-care (01) ==
LOC: ORPAIN 07:25
PROVIDERS: ATTEND Hospitalist
DX: M54.16 Radiculopathy, lumbar region (principal); Z88.2 Allergy status to sulfonamides
CPT/HCPCS: 64483; J1100; Q9966

== ENCOUNTER 2022-09-18 09:17 | Observation (INO) | payer BC, MEDICARE ==
[2022-09-18] MEDS ORDERED: MORPHINE SULFATE 4 MG/ML SYRINGE IV STA (09:44)
--- NOTE | 2022-09-18 09:52 | ED ---
Extremity Problem HPI - General Chief complaint: Extremity Problem,Nontraumatic Stated complaint: lt hand numbness Time Seen by Provider: 09/18/22 09:36 Source: patient, RN notes reviewed, old records reviewed Mode of arrival: ambulatory Limitations: no limitations - History of Present Illness Initial comments: This is a nontoxic-appearing 67-year-old female that presents to the emergency room with discoloration of her second through fifth digits of her left hand for the past week. Patient states she has been doing a lot of quilting and does sometimes poke her fingers. She states that the discoloration improves when held dependent but does not resolve completely. Increased discomfort brought her to the emergency room today. She denies any other injuries. No fevers. She does have good range of motion. She is a daily smoker. History of COPD, hypertension and osteoarthritis. MD Complaint: extremity pain, cold extremity (3rd digit ) -: week(s) (1) Location: left (2-5 digits) History of Same: No Consistency: constant Improves with: other (Dependency) Associated Symptoms: denies other symptoms - Related Data Home Medications Medication Instructions Recorded Confirmed Gabapentin [Neurontin] 300 mg PO BID 08/10/17 09/18/22 HYDROcodone/APAP 5-325MG [[place] 1 tab PO TID PRN 08/06/20 09/18/22 5-325] Zolpidem [Ambien] 5 mg PO HS PRN 08/06/20 09/18/22 Famotidine [Pepcid] 20 mg PO DAILY 06/05/22 09/18/22 Furosemide [Lasix] 20 mg PO DAILY PRN 06/05/22 09/18/22 Losartan Potassium 100 mg PO DAILY 06/05/22 09/18/22 Potassium Chloride ER [K-Dur 10] 10 meq PO DAILY PRN 06/05/22 09/18/22 amLODIPine [Norvasc] 10 mg PO DAILY 06/05/22 09/18/22 Allergies Allergy/AdvReac Type Severity Reaction Status Date / Time sulfamethoxazole Allergy facial Verified 09/18/22 10:18 [From Bactrim] swelling trimethoprim [From Bactrim] Allergy facial Verified 09/18/22 10:18 swelling Review of Systems ROS Statement: Those systems with pertinent positive or pertinent negative responses have been documented in the HPI. ROS Other: All systems not noted in ROS Statement are negative. Past Medical History Past Medical History: COPD, GERD/Reflux, Hyperlipidemia, Hypertension, Osteoarthritis (OA) Additional Past Medical History / Comment(s): HYPOGLYCEMIC, pain procedure History of Any Multi-Drug Resistant Organisms: None Reported Past Surgical History: Appendectomy, Section, Tonsillectomy Additional Past Surgical History / Comment(s): COLONOSCOPY Past Anesthesia/Blood Transfusion Reactions: No Reported Reaction Past Psychological History: No Psychological Hx Reported Smoking Status: Current every day smoker Past Alcohol Use History: None Reported Past Drug Use History: None Reported - Past Family History Father Family Medical History: Cancer Mother Family Medical History: Cancer Sister(s) Family Medical History: Cancer Brother(s) Family Medical History: Cancer General Exam Limitations: no limitations General appearance: alert, in no apparent distress Head exam: Present: atraumatic, normocephalic Eye exam: Present: normal appearance. Absent: scleral icterus, conjunctival injection ENT exam: Present: mucous membranes moist Respiratory exam: Present: normal lung sounds bilaterally. Absent: respiratory distress, accessory muscle use Cardiovascular Exam: Present: tachycardia Extremities exam: Present: full ROM, tenderness, other (Cyanotic fingertips second third fourth and fifth digits. Third distal tip cold and painful to touch. Pulmonary some of the hand warm to touch capillary refill less than 2 seconds. ). Absent: normal capillary refill Neurological exam: Present: alert, oriented X3, normal gait Psychiatric exam: Present: normal affect, normal mood Skin exam: Present: warm, cyanosis (Distal fingertips 2-5). Absent: pallor Course Vital Signs 09/18/22 09/18/22 09/18/22 09:19 09:56 10:56 Temperature 98.5 F Pulse Rate 107 H 100 87 Respiratory 18 18 18 Rate Blood Pressure 204/85 178/82 169/91 O2 Sat by Pulse 96 94 L 95 Oximetry 09/18/22 12:27 Temperature Pulse Rate 92 Respiratory 18 Rate Blood Pressure 171/77 O2 Sat by Pulse 96 Oximetry Medical Decision Making - Medical Decision Making On initial physical examination I was able to palpate a weak radial pulse which subsequently diminished in the emergency room and was nonpalpable. Good capillary refill to the PIP joint, cyanosis to distal DIP of the second - fifth digits. Dorsum of hand pink with normal capillary refill. Dr. Quick at bedside to evaluate. CTA shows significant stenosis left subclavian artery near 85% due to noncalcified plaque. No additional stenosis, radial artery seen at level of the wrist and proximal hand patent. Suboptimal study cannot accurately evaluate the smaller arcade vessels in the hand. Dr. Quick spoke with Dr. Leong who is agreeable to the patient is being started on heparin, carotid doppler ultasound ordered. Results discussed with the patient and she is agreeable to this plan of care. I did speak with Dr. West who was agreeable to admission. Was pt. sent in by a medical professional or institution (, PA, CORROSION CONTROL ENGINEER, urgent care, hospital, or senior living...) When possible be specific @ -[No] Did you speak to anyone other than the patient for history (EMS, parent, family, police, friend...)? What history was obtained from this source @ -[No] Did you review nursing and triage notes (agree or disagree)? Why? @ -[I reviewed and agree with nursing and triage notes] Were old charts reviewed (outside hosp., previous admission, EMS record, old EKG, old radiological studies, urgent care reports/EKG's, senior living records)? Report findings @ -[No old charts were reviewed] Differential Diagnosis (chest pain, altered mental status, abdominal pain women, abdominal pain men, vaginal bleeding, weakness, fever, dyspnea, syncope, headac he, dizziness, GI bleed, back pain, seizure, CVA, palpatations, mental health, musculoskeletal)? @ -DVT, necrotizing fasciitis, raynauds, trauma, intermittent claudication, arterial occlusion EKG interpreted by me (3pts min.). @ -n/a X-rays interpreted by me (1pt min.). @ -[None done] CT interpreted by me (1pt min.). @ -no U/S interpreted by me (1pt. min.). @ -[None done] What testing was considered but not performed or refused? (CT, X-rays, U/S, labs)? Why? @ -Ultrasound of the left arm was considered however speaking with Dr. Crawford radiology recommended CT What meds were considered but not given or refused? Why? @ -nicotine patch considered but withheld due to vasoconstriction properties Did you discuss the management of the patient with other professionals (professionals i.e. , PA, CORROSION CONTROL ENGINEER, lab, RT, psych nurse, high school social studies teacher, steel sampler, teacher, control officer, piano case maker)? Give summary @ -Dr. Crawford radiology recommended CT versus ultrasound, Dr. Leong vascular agreeable to heparin and admission with carotid Doppler Ultrasound Was smoking cessation discussed for >3mins.? @ -yes Was critical care preformed (if so, how long)? @ -yes heparin and frequent evaluation of vascular compromise Were there social determinants of health that impacted care today? How? (Homelessness, low income, unemployed, alcoholism, drug addiction, transportation, low edu. Level, literacy, decrease access to med. care, care home, rehab)? @ -[No] Was there de-escalation of care discussed even if they declined (Discuss DNR or withdrawal of care, Hospice)? DNR status @ -[No] What co-morbidities impacted this encounter? (DM, HTN, Smoking, COPD, CAD, Cancer, CVA, ARF, Chemo, Hep., AIDS, mental health diagnosis, sleep apnea, morbid obesity)? @ -Smoker, COPD, hypertension, osteoarthritis Was patient admitted / discharged? Hospital course, mention meds given and route, prescriptions, significant lab abnormalities, going to OR and other pertinent info. @ -Admitted Undiagnosed new problem with uncertain prognosis? @ -85% stenosis left subclavian artery causing cyanosis of digits left hand Drug Therapy requiring intensive monitoring for toxicity (Heparin, Nitro, Insulin, Cardizem)? @ -Heparin Were any procedures done? @ -[No] Diagnosis/symptom? @ -Stenosis left subclavian artery with cyanosis of the fingers Acute, or Chronic, or Acute on Chronic? @ -Acute Uncomplicated (without systemic symptoms) or Complicated (systemic symptoms)? @ -Complicated Side effects of treatment? @ -[No] Exacerbation, Progression, or Severe Exacerbation? @ -[No] Poses a threat to life or bodily function? How? (Chest pain, USA, PA, pneumonia, PE, COPD, DKA, ARF, appy, cholecystitis, CVA, Diverticulitis, Homicidal, Suicidal, threat to staff... and all critical care pts) @ -Yes 85 percent stenosis left subclavian artery causing cyanosis - Lab Data Result diagrams: 09/18/22 10:03 04/21/23 10:03 Lab Results 09/18/22 09/18/22 09/18/22 Range/Units 10:03 10:03 10:03 WBC 6.7 (3.8-10.6) k/uL RBC 5.03 (3.80-5.40) m/uL Hgb 15.2 (11.4-16.0) gm/dL Hct 46.0 (34.0-46.0) % MCV 91.5 (80.0-100.0) fL MCH 30.3 (25.0-35.0) pg MCHC 33.1 (31.0-37.0) g/dL RDW 13.2 (11.5-15.5) % Plt Count 290 (150-450) k/uL MPV 7.2 Neutrophils % 75 % Lymphocytes % 16 % Monocytes % 6 % Eosinophils % 1 % Basophils % 0 % Neutrophils # 5.0 (1.3-7.7) k/uL Lymphocytes # 1.1 (1.0-4.8) k/uL Monocytes # 0.4 (0-1.0) k/uL Eosinophils # 0.1 (0-0.7) k/uL Basophils # 0.0 (0-0.2) k/uL ESR 14 (0-20) mm/hr Sodium 139 (137-145) mmol/L Potassium 4.3 (3.5-5.1) mmol/L Chloride 106 (98-107) mmol/L Carbon Dioxide 24 (22-30) mmol/L Anion Gap 9 mmol/L BUN 11 (7-17) mg/dL Creatinine 0.40 L (0.52-1.04) mg/dL Est GFR (CKD-EPI)AfAm >90 (>60 ml/min/1.73 sqM) Est GFR (CKD-EPI)NonAf >90 (>60 ml/min/1.73 sqM) Glucose 130 H (74-99) mg/dL Plasma Lactic Acid Shady 0.8 (0.7-2.0) mmol/L Calcium 9.0 (8.4-10.2) mg/dL Total Bilirubin 0.6 (0.2-1.3) mg/dL AST 31 (14-36) U/L ALT 15 (4-34) U/L Alkaline Phosphatase 93 (38-126) U/L C-Reactive Protein 1.6 H (<1.0) mg/dL Total Protein 7.0 (6.3-8.2) g/dL Albumin 4.1 (3.5-5.0) g/dL Critical Care Time Critical Care Time: Yes Total Critical Care Time: 32 Disposition Clinical Impression: Occlusion of left subclavian artery Disposition: ADMITTED IP TO THIS [facility] Referrals: Mathew West MD [Primary Care Provider] - 1-2 days Decision Date: 09/18/22 Decision Time: 12:50
[2022-09-18 10:21] LABS: Basophils % (A) 0 %; Eosinophils # (A) 0.1 k/uL (0-0.7); Eosinophils % (A) 1 %; HGB 15.2 gm/dL (11.4-16.0); Lymphocytes # (A) 1.1 k/uL (1.0-4.8); Lymphocytes % (A) 16 %; MCH 30.3 pg (25.0-35.0); MCHC 33.1 g/dL (31.0-37.0); MCV 91.5 fL (80.0-100.0); Mean Platelet Volume 7.2; Monocytes # (A) 0.4 k/uL (0-1.0); Monocytes % (A) 6 %; Neutrophils % (A) 75 %; Platelet Count 290 k/uL (150-450); RBC 5.03 m/uL (3.80-5.40); RDW 13.2 % (11.5-15.5); WBC 6.7 k/uL (3.8-10.6)
[2022-09-18 10:40] LABS: ALT 15 U/L (4-34); AST 31 U/L (14-36); African American GFR (CKD) >90 (>60 ml/min/1.73 sqM); Albumin 4.1 g/dL (3.5-5.0); Alkaline Phosphatase 93 U/L (38-126); Anion Gap 9 mmol/L; Blood Urea Nitrogen 11 mg/dL (7-17); Carbon Dioxide 24 mmol/L (22-30); Chloride 106 mmol/L (98-107); Glucose 130 mg/dL (74-99); Non-African American GFR(CKD) >90 (>60 ml/min/1.73 sqM); Potassium 4.3 mmol/L (3.5-5.1); Sodium 139 mmol/L (137-145); Total Bilirubin 0.6 mg/dL (0.2-1.3)
[2022-09-18] MEDS ORDERED: HYDROmorphone 0.5 MG/0.5 ML SYRINGE IVP STA (10:54)
[2022-09-18 11:02] LABS: C Reactive Protein 1.6 mg/dL (<1.0)
[2022-09-18 11:55] LABS: Erythrocyte Sedimentation Rate 14 mm/hr (0-20)
--- NOTE | 2022-09-18 12:07 | CT ---
EXAMINATION TYPE: CT angio upper extremity LT DATE OF EXAM: 09/18/2022 11:54 AM COMPARISON: None. HISTORY: vascular compromise, no palpable radial pulse. Abnormal physical exam CT DLP: 956.5 mGycm Automated exposure control for dose reduction was used. TECHNIQUE: Performed with IV Contrast, patient injected with 100 mL of Isovue 300. 3D reconstructed images are created on an independent workstation and reviewed.. FINDINGS: Normal 3 vessel origin from the aortic arch. There is significant narrowing due to concentric noncalc ified plaque in the left subclavian artery. Trace flow noted axial image 45 lm diameter measuring 1.4 mm and expanding to 8.0 mm distal to this. There is additional [id number] peripheral hypoechoi c plaque not causing significant stenosis in the proximal left subclavian artery axial image 29 noted . Left axillary artery shows no significant plaque or stenosis. Left brachial artery is patent withou t significant focal stenosis. There is bifurcation into radial and ulnar arteries with patency withou t significant focal stenosis. Patent radial artery seen in the region of the wrist and proximal hand. Suboptimal evaluation of the smaller arterial vessels in the hand due to oblique positioning. Subopt imal study due to artifact from including entire body in the field of view. Preference would have bee n to have arm overhead. Visualized thorax shows mild to moderate underlying emphysematous change. There is dependent atelecta sis in the lower lobes. Visualized abdomen and pelvis show no suspicious abnormality. Vertical course to the celiac artery with narrowing under 50% is noted. Moderate to severe mixed plaque in the infra renal abdominal aorta extends into iliac branch vessels moderate to severe disc space narrowing with vacuum disc phenomenon at L5-S1 level. Prominent Schmorl node posterior superior L1 endplate. IMPRESSION: Significant stenosis in the left subclavian artery near 85% due to noncalcified plaque. N o additional significant stenosis. Patent radial artery seen at level of the wrist and proximal hand. Suboptimal study as detailed above. Cannot accurately evaluate the smaller arcade vessels in the singh d.
[2022-09-18] MEDS ORDERED: HEPARIN SODIUM 1,000 UN/ML (10ML VL) IV PRN (12:49)
[2022-09-18] MEDS ORDERED: HEPARIN SODIUM 1,000 UN/ML (10ML VL) IV ONE (12:49)
[2022-09-18] MEDS ORDERED: NALOXONE 0.4 MG/ML 1 ML VIAL IV PRN (12:52)
[2022-09-18] MEDS ORDERED: ZOLPIDEM 5 MG TAB PO PRN (12:54)
[2022-09-18] MEDS ORDERED: POTASSIUM CHLORIDE ER 10 MEQ TAB.ER.PRT PO PRN (12:54)
[2022-09-18] MEDS ORDERED: FUROSEMIDE 20 MG TAB PO PRN (12:54)
[2022-09-18] MEDS: HYDROmorphone 0.5 MG/0.5 ML SYRINGE IVP PRN ×2 (13:04→20:39)
[2022-09-18] MEDS: HEPARIN SOD,PORK IN 0.45% NACL 25,000 UNIT in 0.45% NACL 1 250ML.BAG IV SCH (13:08)
--- NOTE | 2022-09-18 13:55 | P.GSCN ---
History of Present Illness Consult date: 09/18/22 Reason for Consult: Left subclavian stenosis Requesting physician: Samuel Bonner History of present illness: The subcu pleasant 67-year-old female who presented to the emergency department this morning with complaints of left hand numbness and fingers are discolored and painful. Patient denies any significant past medical history other than hypertension, she is a 1 pack per day smoker for many years. She states her hand and finger started becoming numb and tingly with discoloration last week however last night her fingers became very painful and more discolored and came for further evaluation. Patient states middle finger is the most painful to touch, fingers are cool and distal tips. The patient denies any previous history of blood clots, no clubbing disorders, no history of coronary artery disease. She states she has full range of motion of the left upper extremity. She denies any shortness of breath, chest pain, abdominal pain, nausea or vomiting. No fevers or chills. She underwent a CT angiogram of the left upper extremity which reported significant stenosis in the left subclavian artery are 85% due to noncalcified plaque. No additional significant stenosis. Patent radial artery seen at level of the wrist and proximal hand. Suboptimal study he has described cannot accurately evaluate the smaller arcade vessels in the hand. Review of Systems A 14 point review systems was completed all pertinent positives and negatives as stated in the HPI. Past Medical History Past Medical History: COPD, GERD/Reflux, Hyperlipidemia, Hypertension, Osteoarthritis (OA) Additional Past Medical History / Comment(s): HYPOGLYCEMIC, pain procedure History of Any Multi-Drug Resistant Organisms: None Reported Past Surgical History: Appendectomy, Section, Tonsillectomy Additional Past Surgical History / Comment(s): COLONOSCOPY Past Anesthesia/Blood Transfusion Reactions: No Reported Reaction Past Psychological History: No Psychological Hx Reported Smoking Status: Current every day smoker Past Alcohol Use History: None Reported Past Drug Use History: None Reported - Past Family History Father Family Medical History: Cancer Mother Family Medical History: Cancer Sister(s) Family Medical History: Cancer Brother(s) Family Medical History: Cancer Medications and Allergies Home Medications Medication Instructions Recorded Confirmed Type Gabapentin [Neurontin] 300 mg PO BID 08/10/17 09/18/22 History HYDROcodone/APAP 5-325MG [[place] 1 tab PO TID PRN 08/06/20 09/18/22 History 5-325] Zolpidem [Ambien] 5 mg PO HS PRN 08/06/20 09/18/22 History Famotidine [Pepcid] 20 mg PO DAILY 06/05/22 09/18/22 History Furosemide [Lasix] 20 mg PO DAILY PRN 06/05/22 09/18/22 History Losartan Potassium 100 mg PO DAILY 06/05/22 09/18/22 History Potassium Chloride ER [K-Dur 10] 10 meq PO DAILY PRN 06/05/22 09/18/22 History amLODIPine [Norvasc] 10 mg PO DAILY 06/05/22 09/18/22 History Allergies Allergy/AdvReac Type Severity Reaction Status Date / Time sulfamethoxazole Allergy facial Verified 09/18/22 10:18 [From Bactrim] swelling trimethoprim [From Bactrim] Allergy facial Verified 09/18/22 10:18 swelling Surgical - Exam Vital Signs Temp Pulse Resp BP Pulse Ox 98.5 F 107 H 18 204/85 96 09/18/22 09:19 09/18/22 09:19 09/18/22 09:19 09/18/22 09:19 09/18/22 09:19 General appearance: The patient is alert, oriented, appears in no acute distress. HET: Head is normocephalic and atraumatic. Pupils are equal and reactive. Neck: Supple. Trachea midline. No audible carotid bruit. Heart: Regular. Lungs: Equal expansion, normal respiratory effort. Abdomen: Soft, nontender, nondistended. Extremities: Bilateral upper extremities with full range of motion. Left arm and hand warm to the touch, distal fingertips to through 5 purple, cool to the touch. Nonpalpable radial pulse. Right upper extremity warm to the touch, pain, palpable bounding radial pulse. Third finger very tender to touch. Neurological: No focal deficits. Strength and sensation are grossly intact. Results - Labs 09/18/22 10:03 09/18/22 10:03 Abnormal Lab Results - Last 24 Hours (Table) 09/18/22 Range/Units 10:03 Creatinine 0.40 L (0.52-1.04) mg/dL Glucose 130 H (74-99) mg/dL C-Reactive Protein 1.6 H (<1.0) mg/dL Diabetes panel 09/18/22 Range/Units 10:03 Sodium 139 (137-145) mmol/L Potassium 4.3 (3.5-5.1) mmol/L Chloride 106 (98-107) mmol/L Carbon Dioxide 24 (22-30) mmol/L BUN 11 (7-17) mg/dL Creatinine 0.40 L (0.52-1.04) mg/dL Glucose 130 H (74-99) mg/dL Calcium 9.0 (8.4-10.2) mg/dL AST 31 (14-36) U/L ALT 15 (4-34) U/L Alkaline Phosphatase 93 (38-126) U/L Total Protein 7.0 (6.3-8.2) g/dL Albumin 4.1 (3.5-5.0) g/dL Calcium panel 09/18/22 Range/Units 10:03 Calcium 9.0 (8.4-10.2) mg/dL Albumin 4.1 (3.5-5.0) g/dL Pituitary panel 09/18/22 Range/Units 10:03 Sodium 139 (137-145) mmol/L Potassium 4.3 (3.5-5.1) mmol/L Chloride 106 (98-107) mmol/L Carbon Dioxide 24 (22-30) mmol/L BUN 11 (7-17) mg/dL Creatinine 0.40 L (0.52-1.04) mg/dL Glucose 130 H (74-99) mg/dL Calcium 9.0 (8.4-10.2) mg/dL Adrenal panel 09/18/22 Range/Units 10:03 Sodium 139 (137-145) mmol/L Potassium 4.3 (3.5-5.1) mmol/L Chloride 106 (98-107) mmol/L Carbon Dioxide 24 (22-30) mmol/L BUN 11 (7-17) mg/dL Creatinine 0.40 L (0.52-1.04) mg/dL Glucose 130 H (74-99) mg/dL Calcium 9.0 (8.4-10.2) mg/dL Total Bilirubin 0.6 (0.2-1.3) mg/dL AST 31 (14-36) U/L ALT 15 (4-34) U/L Alkaline Phosphatase 93 (38-126) U/L Total Protein 7.0 (6.3-8.2) g/dL Albumin 4.1 (3.5-5.0) g/dL Assessment and Plan Assessment: 1. Left subclavian artery stenosis 2. Left hand numbness with discoloration fingertips 3. Nicotine dependence Plan: 1. Start heparin drip 2. Carotid duplex ordered 3. Keep nothing by mouth 4. Smoking cessation 5. Further recommendations forthcoming from vascular surgeon Thank you for this consultation, we will continue to follow. Dr. Carmela Crandall I agree with the dictator's note, documented as a scribe by Virgen Palumbo.
--- NOTE | 2022-09-18 14:14 | US ---
EXAMINATION TYPE: US carotid duplex BILAT DATE OF EXAM: 09/18/2022 COMPARISON: NONE CLINICAL INDICATION: Female, 67 years old with history of occlusion; discoloration left fingers. Left hand numbness TECHNIQUE: Carotid duplex ultrasound examination. Indirect Doppler criteria was utilized. FINDINGS: EXAM MEASUREMENTS: RIGHT: Peak Systolic Velocity (PSV) cm/sec ----- Right CCA: 86.7 ----- Right ICA: 153.6 ----- Right ECA: 211.6 ICA/CCA ratio: 1.8 RIGHT: End Diastole cm/sec ----- Right CCA: 25.2 ----- Right ICA: 47.1 ----- Right ECA: 38.7 LEFT: Peak Systolic Velocity (PSV) cm/sec ----- Left CCA: 93.1 ----- Left ICA: 145.7 ----- Left ECA: 225.5 ICA/CCA ratio: 1.6 LEFT: End Diastole cm/sec ----- Left CCA: 28.3 ----- Left ICA: 47.1 ----- Left ECA: 33.2 VERTEBRALS (direction of flow): Right Vertebral: Antegrade Left Vertebral: unable to visualize Rhythm: Normal LAB ANALYST NOTES: Moderate plaque bilateral bifurcations. increased velocities bilateral ECAs. Mildl y increased velocities bilateral ICA's Hutchinson scale images show mild to moderate peripheral hyperechoic plaque near the bilateral carotid bulb s. Elevated peak systolic velocity in both internal carotid arteries and end diastolic velocities. Ra tios remain within normal limits. IMPRESSION: Moderate plaque bilaterally with hemodynamically significant stenosis estimated 50-69% s uspected at the bilateral carotid bulbs level. CTA or MRA of the neck advised to further evaluate. Criteria for Assigning % of Stenosis / Diameter reduction (Estimation based on the indirect measurements of the internal carotid artery velocities (ICA PSV). 1. Normal (no stenosis)=ICA PSV < 125 cm/s: ratio < 2.0: ICA EDV<40 cm/s. 2. Less than 50% stenosis=ICA PSV < 125 cm/s: ratio < 2.0: ICA EDV<40 cm/s. 3. 50 to 69% stenosis=ICA PSV of 125 to 230 cm/s: ration 2.0 ? 4.0: ICA EDV 40-100 cm/s. 4. Greater than 70% stenosis to near occlusion= ICA PSV > 230 cm/s: ratio > 4.0: ICA EDV > 100 cm/s. 5. Near occlusion= ICA PSV velocities may be low or undetectable: variable ratio and ICA EDV. 6. Total occlusion=unable to detect flow.
[2022-09-18] MEDS: HYDROcodone/APAP 5-325MG 1 EACH TAB PO PRN (14:49)
[2022-09-18 16:57] LABS: Basophils % (A) 0 %; Eosinophils # (A) 0.1 k/uL (0-0.7); Eosinophils % (A) 1 %; HCT 47.7 % (34.0-46.0); HGB 15.4 gm/dL (11.4-16.0); Lymphocytes # (A) 2.2 k/uL (1.0-4.8); Lymphocytes % (A) 27 %; MCH 29.9 pg (25.0-35.0); MCHC 32.3 g/dL (31.0-37.0); MCV 92.8 fL (80.0-100.0); Mean Platelet Volume 7.5; Monocytes # (A) 0.5 k/uL (0-1.0); Monocytes % (A) 6 %; Neutrophils # (A) 5.3 k/uL (1.3-7.7); Neutrophils % (A) 65 %; Platelet Count 294 k/uL (150-450); RBC 5.14 m/uL (3.80-5.40); RDW 13.2 % (11.5-15.5); WBC 8.2 k/uL (3.8-10.6)
[2022-09-18 17:40] LABS: Prothrombin Time 10.7 sec (9.0-12.0)
[2022-09-18 17:55] LABS: Partial Thromboplastin Time 144.9 sec (22.0-30.0)
[2022-09-18] MEDS: GABAPENTIN 300 MG CAP PO SCH (20:29)
[2022-09-18 22:22] VITALS: RESP 18
[2022-09-19] MEDS: HYDROmorphone 0.5 MG/0.5 ML SYRINGE IVP PRN ×2 (01:15→06:15)
[2022-09-19] MEDS: HYDROcodone/APAP 5-325MG 1 EACH TAB PO PRN ×2 (01:21→09:36)
[2022-09-19 07:35] VITALS: PULSE 83; TEMP 98.1
[2022-09-19] MEDS ORDERED: NITROGLYCERIN OINT 1 INCH/GM PACKET TOPICAL SCH (08:30)
[2022-09-19] MEDS ORDERED: ASPIRIN 81 MG PO SCH (09:00)
[2022-09-19] MEDS ORDERED: ATORVASTATIN 20 MG TAB PO SCH (09:00)
[2022-09-19] MEDS ORDERED: LOSARTAN 50 MG TAB PO SCH (09:00)
[2022-09-19] MEDS ORDERED: FAMOTIDINE 20 MG TAB PO SCH (09:00)
[2022-09-19] MEDS ORDERED: amLODIPine 10 MG TAB PO SCH (09:00)
--- NOTE | 2022-09-19 09:20 | P.PN ---
Subjective Progress Note Date: 09/19/22 Patient indicates that overall her fingers feel better with the exception of the middle finger. Objective - Vital Signs Vital signs: Vital Signs Temp 98.1 F 09/19/22 07:00 Pulse 83 09/19/22 07:00 Resp 18 09/19/22 07:00 BP 197/79 09/19/22 07:00 Pulse Ox 95 09/19/22 07:00 FiO2 Intake & Output 09/18/22 09/19/22 09/19/22 18:59 06:59 18:59 Intake Total 77.335 106.472 Balance 77.335 106.472 Weight 87.09 kg Intake: Intake, IV Titration 77.335 106.472 Amount Heparin Sod,Pork in 0.45% 77.335 106.472 NaCl 25,000 unit In 0.45 % NaCl 1 250ml.bag @ 18 UNITS/KG/HR 15.676 mls/hr IV .[id number] [facility] Rx#: [id number] Other: Voiding Method Toilet External Catheter # Voids 2 - Exam The hand is warm. The second fourth and fifth digits show signs of becoming more pink and was purple in discoloration. Patient has full range of motion of the hand. - Labs CBC & Chem 7: 09/18/22 16:15 09/18/22 10:03 Labs: Abnormal Lab Results - Last 24 Hours (Table) 09/18/22 09/18/22 09/18/22 Range/Units 10:03 16:15 16:15 Hct 47.7 H (34.0-46.0) % APTT 144.9 H* (22.0-30.0) sec Creatinine 0.40 L (0.52-1.04) mg/dL Glucose 130 H (74-99) mg/dL C-Reactive Protein 1.6 H (<1.0) mg/dL 09/19/22 Range/Units 01:47 Hct (34.0-46.0) % APTT 90.8 H (22.0-30.0) sec Creatinine (0.52-1.04) mg/dL Glucose (74-99) mg/dL C-Reactive Protein (<1.0) mg/dL Assessment and Plan Assessment: Digital ischemia of the second, third, fourth digits left hand. Suspect Raynauds' phenomenon or similar Left subclavian artery stenosis. Tobacco abuse with secondary vasospasm. Overall improvement. Plan: 1: Agree with anticoagulation. 2: If possible would like the patient be placed on a calcium channel darius. 3: We'll apply Nitropaste to the digits. 4: Begin Lipitor and aspirin. 5: Eventually the patient would benefit by subclavian artery intervention however I do not believe this is the main cause of her symptoms feeling this is more vasospastic given the fact that her entire hand is warm and she has normal range of motion and since she has voided tobacco over the past 12 hours her digits are improving. This was discussed with Dr. West. Time with Patient: Less than 30
[2022-09-19] MEDS: GABAPENTIN 300 MG CAP PO SCH (09:36)
[2022-09-19] MEDS: HEPARIN SOD,PORK IN 0.45% NACL 25,000 UNIT in 0.45% NACL 1 250ML.BAG IV SCH (09:37)
[2022-09-19 09:55] LABS: Basophils % (A) 1 %; Eosinophils # (A) 0.1 k/uL (0-0.7); Eosinophils % (A) 2 %; HCT 45.9 % (34.0-46.0); HGB 15.2 gm/dL (11.4-16.0); Lymphocytes # (A) 1.8 k/uL (1.0-4.8); Lymphocytes % (A) 30 %; MCHC 33.2 g/dL (31.0-37.0); MCV 93.4 fL (80.0-100.0); Mean Platelet Volume 7.3; Monocytes # (A) 0.4 k/uL (0-1.0); Monocytes % (A) 6 %; Neutrophils # (A) 3.6 k/uL (1.3-7.7); Neutrophils % (A) 60 %; Platelet Count 269 k/uL (150-450); RBC 4.92 m/uL (3.80-5.40); RDW 13.1 % (11.5-15.5)
[2022-09-19 11:03] VITALS: BP 151/85
--- NOTE | 2022-09-19 17:12 | P.HPIM ---
History of Present Illness H&P Date: 09/18/22 Chief Complaint: Painful bluish discoloration of the left second third and f ourth fingers HISTORY OF PRESENT ILLNESS: This is a 67-year-old female one a patient with a previous medical history significant for hypertension and hypertensive cardio vascular disease, hyperlipidemia, chronic tobacco use and dependence with chronic obstructive pulmonary disease, multiple counseling for smoking cessation without success, as a matter fact and the last office visit she was advised that she may have had left subclavian stenosis since her pulse in the left upper extremity is barely palpable and we could not obtain a blood pressure reading on the left upper extremity yet its pre-elevated in the right upper extremity, but this patient did not want to do anything about at this point patient had suffered from significant spondylosis of the lumbar spine and has been taking hydrocodone for pain control along with muscle relaxer. Patient stated that she was in her [facility] state of health until about yesterday when she was doing embroidement at home and she was heading her left second third and fourth fingers with the needle this became quite painful her daughter came and saw her and she saw bluish discoloration of the tip of her digits so she brought her to the e mergency department at [facility] where she ended up having a CT angiography of the chest that showed evidence of 85% stenosis of the left subclavian artery vascular surgery consultation was obtained, Dr. Leong recommended for the patient to be started on heparin drip, aspirin 81 mg once every day and atorvastatin 20 mg once every day, she was admitted to the hospital for evaluation and further recommendation, continue to enrollment counselor the patient about smoking cessation and increased risk of CVA, CAD, and malignancy. REVIEW OF SYSTEMS: Constitutional: No documented fever, no chills, no night sweats. No weight change. No weakness, fatigue or lethargy. No daytime sleepiness. HEENT: No headache. No blurred vision or double vision, no loss of vision. No loss of Hearing, no ringing in the ears, no dizziness. No nasal drainage or congestion. No epistaxis. No sore throat. Lungs: No shortness of breath, occasional cough, no sputum production. No wheezing. Reports dyspnea with activity. Cardiovascular: No chest pain, positive for mild lower extremity edema. No palpitations. No paroxysmal nocturnal dyspnea. No orthopnea. No lightheadedness or dizziness. No syncopal episodes. Abdominal: Reports abdominal pain. No nausea, vomiting. No diarrhea. No constipation. No bloody or tarry stools reports loss of appetite. Genitourinary: No dysuria, increased frequency, urgency. No urinary retention. Musculoskeletal: No myalgias. No muscle weakness, no gait dysfunction, no frequent falls. No back pain. No neck pain. Integumentary: No wounds, no lesions. No rash or pruritus.positive for bluish discoloration of the left 2nd, 3rd, and 4th fingers with tenderness to touch Neurologic: No aphasia. No facial droop. No change in mentation. No head injury. No headache. No paralysis. No paresthesia. Psychiatric: positive for depression. No anxiety. No mood swings. Endocrine: No abnormal blood sugars. No weight change. PAST MEDICAL HISTORY: Hypertension and hypertensive cardiovascular disease. Hyperlipidemia. 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 COPD. Left subclavian stenosis PAST SURGICAL HISTORY: 1996 Appendectomy. Tonsillectomy. Tubal ligation 1996 Neck abscess 07/2020 SOCIAL HISTORY: patient smokes a bit more than a pack every day since she was 19-year-old, she denies any alcohol ingestion, she denies any drug use or abuse. FAMILY HISTORY: Father at age of 46 from stomach cancer mother at age of 68 from lung cancer patient had 4 brothers one with AL the other one with pancreatic cancer and liver metastases the third one with AL and the fourth one is fine patient has one sister who at the age of 42 from ovarian cancer patient has 2 sons and 1 daughter no major medical problems. PHYSICAL EXAMINATION: General: 67-year-old female laying down in bed in no distress. HEENT: Head is atraumatic, normocephalic, pupils were equal round reactive to light and recommendation, extraocular muscle movement were intact, sclera nonicteric, conjunctivae were pale, mucous membranes of the mouth are somewhat dry. Neck: Supple, no JVP, normal carotid upstroke bilaterally, no lymphadenopathy. Chest: Decreased breath sounds at the bases, few rhonchi, no expiratory wheezes, no chest wall tenderness, no intercostal retractions. Heart: First heart sound is normal, second heart sounds normal there is systolic ejection murmur 2/6 located in the left sternal border. Abdomen: Soft, nontender, nondistended, positive bowel sounds, no hepat osplenomegaly. Extremities: There is mild edema no calf tenderness DP +1 bilaterally, left upper extremity could not palpate radial pulse there is bluish discoloration to the second third and fourth finger Neurologic examination: Patient is awake alert and oriented X3, cranial nerves II-12 appear grossly intact, muscle power were 5 out of 5 in upper extremities and 5 out of 5 in bilateral lower extremities, deep tendon reflexes normal bilaterally. ASSESSMENT AND PLAN: 1. Ischemia to the left second third and fourth digit of the left hand due to vasospasm likely secondary to chronic tobacco use and dependence. Patient was started on heparin drip , aspirin 81 mg once every day, she has been also on atorvastatin 80 mg once every day, patient was counseled about smoking cessation and increased risk of the CVA, CAD and malignancy along with amputation of the fingers. 2. Left subclavian stenosis. Does not appears to be eminent problem at this stage. She will follow-up with a vascular surgeon as an outpatient. Smoking cessation and counseling. 3. Hypertension and hypertensive cardio vascular disease. Continue patient on losartan 100 mg once every day, amlodipine 10 mg once every day, metoprolol ER 25 mg once every day, monitor the patient blood pressure very closely. 4. Hyperlipidemia. Patient is already on atorvastatin 80 mg orally once every day. 5. Chronic tobacco use and dependence. Patient was counseled about smoking cessation. Avoid nicotine patch. 6. Spondylosis of the lumbar spine. Continue patient on hydrocodone as well as Flexeril. 7. Insomnia. Continue Ambien. 8. DVT prophylaxis. Currently on heparin drip. 9. GI prophylaxis. Continue PPI. 10. Observation. 11. Full code. Past Medical History Past Medical History: COPD, GERD/Reflux, Hyperlipidemia, Hypertension, Osteoarthritis (OA) Additional Past Medical History / Comment(s): HYPOGLYCEMIC, pain procedure History of Any Multi-Drug Resistant Organisms: None Reported Past Surgical History: Appendectomy, Section, Tonsillectomy Additional Past Surgical History / Comment(s): COLONOSCOPY Past Anesthesia/Blood Transfusion Reactions: No Reported Reaction Past Psychological History: No Psychological Hx Reported Smoking Status: Current every day smoker Past Alcohol Use History: None Reported Past Drug Use History: None Reported - Past Family History Father Family Medical History: Cancer Mother Family Medical History: Cancer Sister(s) Family Medical History: Cancer Brother(s) Family Medical History: Cancer Medications and Allergies Home Medications Medication Instructions Recorded Confirmed Type Gabapentin [Neurontin] 300 mg PO BID 08/10/17 09/18/22 History HYDROcodone/APAP 5-325MG [[place] 1 tab PO TID PRN 08/06/20 09/18/22 History 5-325] Zolpidem [Ambien] 5 mg PO HS PRN 08/06/20 09/18/22 History Famotidine [Pepcid] 20 mg PO DAILY 06/05/22 09/18/22 History Furosemide [Lasix] 20 mg PO DAILY PRN 06/05/22 09/18/22 History Losartan Potassium 100 mg PO DAILY 06/05/22 09/18/22 History Potassium Chloride ER [K-Dur 10] 10 meq PO DAILY PRN 06/05/22 09/18/22 History amLODIPine [Norvasc] 10 mg PO DAILY 06/05/22 09/18/22 History Aspirin 81 mg PO DAILY tab 09/19/22 Rx Atorvastatin [Lipitor] 20 mg PO DAILY #90 tab 09/19/22 Rx Nitroglycerin Oint [Nitro-Bid Oint] 1 inch TOPICAL Q8HR #30 packet 09/19/22 Rx Rivaroxaban [Xarelto] 2.5 mg PO BID #60 tab 09/19/22 Rx Allergies Allergy/AdvReac Type Severity Reaction Status Date / Time sulfamethoxazole Allergy facial Verified 09/18/22 10:18 [From Bactrim] swelling trimethoprim [From Bactrim] Allergy facial Verified 09/18/22 10:18 swelling Physical Exam Vitals: Vital Signs Temp Pulse Resp BP Pulse Ox 09/18/22 14:12 99.0 F 69 18 150/77 94 L 09/18/22 12:27 92 18 171/77 96 09/18/22 10:56 87 18 169/91 95 09/18/22 09:56 100 18 178/82 94 L 09/18/22 09:19 98.5 F 107 H 18 204/85 96 Intake and Output 09/17/22 09/18/22 09/18/22 22:59 06:59 14:59 Other: Weight 87.09 kg Results CBC & Chem 7: 09/19/22 09:36 09/18/22 10:03 Labs: Abnormal Lab Results - Last 24 Hours (Table) 09/18/22 Range/Units 10:03 Creatinine 0.40 L (0.52-1.04) mg/dL Glucose 130 H (74-99) mg/dL C-Reactive Protein 1.6 H (<1.0) mg/dL
--- NOTE | 2022-09-19 17:14 | P.DS ---
Providers Date of admission: 09/18/22 14:03 Expected date of discharge: 09/19/22 Attending physician: Mathew West Consults: 09/18/22 12:52 Consult Physician Routine Consulting Provider: Rudi Chan Consult Reason/Comments: left subclavian stenosis Do you want consulting provider notified?: Already Contacted Primary care physician: Mathew West [facility] Course: HISTORY OF PRESENT ILLNESS: This is a 67-year-old female one a patient with a previous medical history significant for hypertension and hypertensive cardio vascular disease, hyperlipidemia, chronic tobacco use and dependence with chronic obstructive pulmonary disease, multiple counseling for smoking cessation without success, as a matter fact and the last office visit she was advised that she may have had left subclavian stenosis since her pulse in the left upper extremity is barely palpable and we could not obtain a blood pressure reading on the left upper extremity yet its pre-elevated in the right upper extremity, but this patient did not want to do anything about at this point patient had suffered from significant spondylosis of the lumbar spine and has been taking hydrocodone for pain control along with muscle relaxer. Patient stated that she was in her usual state of health until about yesterday when she was doing embroidement at home and she was heading her left second third and fourth fingers with the needle this became quite painful her daughter came and saw her and she saw bluish discoloration of the tip of her digits so she brought her to the emergency department at [facility] where she ended up having a CT angiography of the chest that showed evidence of 85% stenosis of the left subclavian artery vascular surgery consultation was obtained, Dr. Leong rec ommended for the patient to be started on heparin drip, aspirin 81 mg once every day and atorvastatin 20 mg once every day, she was admitted to the hospital for evaluation and further recommendation, continue to activities counselor the patient about smoking cessation and increased risk of CVA, CAD, and malignancy. 09/19: Patient is sitting up in bed in no apparent distress, she continues to have a significant bluish discoloration to the second third and fourth digit of the left hand, she was seen earlier by Dr. Leong, he recommended for the patient be started on aspirin 81 mg once every day, she will be switched from heparin to Xarelto 2.5 minute gram orally twice every day, patient is already taking atorvastatin 80 mg once every day, she has been already on calcium channel darius in the form of amlodipine 10 mg once every day, we will monitor the patient as an outpatient the next week, she is to follow-up with him as an outpatient in 1-2 weeks. Meanwhile she was advised to continue with the smoking cessation program. Discharge diagnoses : 1. Ischemia to the left second third and fourth digit likely due to vasospasm. 2. Left subclavian stenosis. 3. Chronic nicotine dependence. 4. COPD. 5. Hypertension and hypertensive cardiovascular disease. 6. Hyperlipidemia. 7. Insomnia. 8. Spondylosis of the lumbar spine. Patient Condition at Discharge: Fair Plan - Discharge Summary New Discharge Prescriptions: New Aspirin 81 mg PO DAILY tab Atorvastatin [Lipitor] 20 mg PO DAILY #90 tab Nitroglycerin Oint [Nitro-Bid Oint] 1 inch TOPICAL Q8HR #30 packet Rivaroxaban [Xarelto] 2.5 mg PO BID #60 tab Continue Gabapentin [Neurontin] 300 mg PO BID Zolpidem [Ambien] 5 mg PO HS PRN PRN Reason: Insomnia HYDROcodone/APAP 5-325MG [[place] 5-325] 1 tab PO TID PRN PRN Reason: Pain Furosemide [Lasix] 20 mg PO DAILY PRN PRN Reason: Edema amLODIPine [Norvasc] 10 mg PO DAILY Famotidine [Pepcid] 20 mg PO DAILY Potassium Chloride ER [K-Dur 10] 10 meq PO DAILY PRN PRN Reason: TAKE WHEN TAKING LASIX Losartan Potassium 100 mg PO DAILY Discharge Medication List Gabapentin [Neurontin] 300 mg PO BID 08/10/17 [History] HYDROcodone/APAP 5-325MG [[place] 5-325] 1 tab PO TID PRN 08/06/20 [History] Zolpidem [Ambien] 5 mg PO HS PRN 08/06/20 [History] Famotidine [Pepcid] 20 mg PO DAILY 06/05/22 [History] Furosemide [Lasix] 20 mg PO DAILY PRN 06/05/22 [History] Losartan Potassium 100 mg PO DAILY 06/05/22 [History] Potassium Chloride ER [K-Dur 10] 10 meq PO DAILY PRN 06/05/22 [History] amLODIPine [Norvasc] 10 mg PO DAILY 06/05/22 [History] Aspirin 81 mg PO DAILY tab 09/19/22 [Rx] Atorvastatin [Lipitor] 20 mg PO DAILY #90 tab 09/19/22 [Rx] Nitroglycerin Oint [Nitro-Bid Oint] 1 inch TOPICAL Q8HR #30 packet 09/19/22 [Rx] Rivaroxaban [Xarelto] 2.5 mg PO BID #60 tab 09/19/22 [Rx] Follow up Appointment(s)/Referral(s): Mathew West MD [Primary Care Provider] - 1-2 days Rudi Chan DO [Doctor of Osteopathic Medicine] - 1 Week Patient Instructions/Handouts: How to Stop Smoking (DC), Cigarette Smoking and Your Health (GEN) Discharge Disposition: HOME SELF-CARE
[2022-09-19] MEDS ORDERED: RIVAROXABAN 2.5 MG TABLET PO SCH (21:00)
== END 2022-09-19 12:32 | disposition home or self-care (01) ==
LOC: EC 09:17 → 6NMEDSUR 14:03
PROVIDERS: ADMIT Internal Medicine; ATTEND Internal Medicine
DX: I70.8 Atherosclerosis of other arteries (principal); J44.9 Chronic obstructive pulmonary disease, unspecified; F17.210 Nicotine dependence, cigarettes, uncomplicated; J98.11 Atelectasis; E78.5 Hyperlipidemia, unspecified; M51.46 Schmorl's nodes, lumbar region; G47.00 Insomnia, unspecified; K21.9 Gastro-esophageal reflux disease without esophagitis; M47.816 Spondylosis without myelopathy or radiculopathy, lumbar region; I11.9 Hypertensive heart disease without heart failure; Z79.899 Other long term (current) drug therapy; Z88.2 Allergy status to sulfonamides; Z98.51 Tubal ligation status; Z80.0 Family history of malignant neoplasm of digestive organs; Z80.41 Family history of malignant neoplasm of ovary; Z80.1 Family history of malignant neoplasm of trachea, bronchus and lung; Z63.4 Disappearance and death of family member; Z79.82 Long term (current) use of aspirin; Z79.01 Long term (current) use of anticoagulants
CPT/HCPCS: 96376 ×3; 96365; 96366; 96375; 99291; 36415; 80053; 85652; 83605; 85025 ×2; 85610; 85730 ×2; 86140; 93880; 73206; G0378 ×2; J2270; J1644 ×3; J1170 ×2; Q9967

== ENCOUNTER 2022-09-27 11:30 | Emergency (ER) | payer BC, MEDICARE ==
[2022-09-27 11:43] VITALS: BP 153/76; PULSE 121; RESP 18; TEMP 97.6
[2022-09-27] MEDS ORDERED: NITROGLYCERIN OINT 1 INCH/GM PACKET TOPICAL STA (12:41)
[2022-09-27] MEDS ORDERED: HYDROcodone/APAP 5-325MG 1 EACH TAB PO STA (12:42)
--- NOTE | 2022-09-27 13:14 | ED ---
General Adult HPI - General Chief complaint: Extremity Problem,Nontraumatic Stated complaint: Revisit - Numbness in Fingers Time Seen by Provider: 09/27/22 11:57 Source: patient, RN notes reviewed Mode of arrival: ambulatory Limitations: no limitations - History of Present Illness Initial comments: 67-year-old female presents to the emergency department chief complaint of "my fingers are blue." She states that she was here on the for this same thing but her fingers are worsening. She has been taking [place] 5 for pain, Xarelto, and applying nitro paste. She states that the fingertips are very painful and the left third digit is the most painful. Her second- fifth digits are cyanotic. She was recently admitted for this but states that is worsening. Patient received a note that she has left-sided subclavian artery stenosis. She continues to smoke. - Related Data Home Medications Medication Instructions Recorded Confirmed Gabapentin [Neurontin] 300 mg PO BID 08/10/17 09/18/22 HYDROcodone/APAP 5-325MG [[place] 1 tab PO TID PRN 08/06/20 09/18/22 5-325] Zolpidem [Ambien] 5 mg PO HS PRN 08/06/20 09/18/22 Famotidine [Pepcid] 20 mg PO DAILY 06/05/22 09/18/22 Furosemide [Lasix] 20 mg PO DAILY PRN 06/05/22 09/18/22 Losartan Potassium 100 mg PO DAILY 06/05/22 09/18/22 Potassium Chloride ER [K-Dur 10] 10 meq PO DAILY PRN 06/05/22 09/18/22 amLODIPine [Norvasc] 10 mg PO DAILY 06/05/22 09/18/22 Previous Rx's Medication Instructions Recorded Aspirin 81 mg PO DAILY tab 09/19/22 Atorvastatin [Lipitor] 20 mg PO DAILY #90 tab 09/19/22 Nitroglycerin Oint [Nitro-Bid Oint] 1 inch TOPICAL Q8HR #30 packet 09/19/22 Rivaroxaban [Xarelto] 2.5 mg PO BID #60 tab 09/19/22 Allergies Allergy/AdvReac Type Severity Reaction Status Date / Time sulfamethoxazole Allergy facial Verified 09/27/22 11:43 [From Bactrim] swelling trimethoprim [From Bactrim] Allergy facial Verified 09/27/22 11:43 swelling Review of Systems ROS Statement: Those systems with pertinent positive or pertinent negative responses have been documented in the HPI. ROS Other: All systems not noted in ROS Statement are negative. Past Medical History Past Medical History: COPD, GERD/Reflux, Hyperlipidemia, Hypertension, Osteoarthritis (OA) Additional Past Medical History / Comment(s): HYPOGLYCEMIC, pain procedure History of Any Multi-Drug Resistant Organisms: None Reported Past Surgical History: Appendectomy, Section, Tonsillectomy Additional Past Surgical History / Comment(s): COLONOSCOPY Past Anesthesia/Blood Transfusion Reactions: No Reported Reaction Past Psychological History: No Psychological Hx Reported Smoking Status: Current every day smoker Past Alcohol Use History: None Reported Past Drug Use History: None Reported - Past Family History Father Family Medical History: Cancer Mother Family Medical History: Cancer Sister(s) Family Medical History: Cancer Brother(s) Family Medical History: Cancer General Exam Limitations: no limitations General appearance: alert, in no apparent distress Head exam: Present: atraumatic, normocephalic, normal inspection Eye exam: Present: normal appearance Respiratory exam: Present: normal lung sounds bilaterally. Absent: respiratory distress, wheezes, rales, rhonchi, stridor Cardiovascular Exam: Present: regular rate, normal rhythm, normal heart sounds. Absent: systolic murmur, diastolic murmur, rubs, gallop, clicks Extremities exam: Present: full ROM, normal capillary refill, other. Absent: normal inspection, tenderness, pedal edema, joint swelling, calf tenderness Neurological exam: Present: alert, oriented X3 Psychiatric exam: Present: normal affect, normal mood Skin exam: Present: other (Cyanosis of the left distal second and fifth phalanx, 1+ radial pulse on the left) Course Vital Signs 09/27/22 11:39 Temperature 97.6 F Pulse Rate 121 H Respiratory 18 Rate Blood Pressure 153/76 O2 Sat by Pulse 97 Oximetry Medical Decision Making - Medical Decision Making Was pt. sent in by a medical professional or institution (, PA, CAR DISTRIBUTOR, urgent care, hospital, or retirement...) When possible be specific @ -No Did you speak to anyone other than the patient for history (EMS, parent, family, police, friend...)? What history was obtained from this source @ -No Did you review nursing and triage notes (agree or disagree)? Why? @ -I reviewed and agree with nursing and triage notes Were old charts reviewed (outside hosp., previous admission, EMS record, old EKG, old radiological studies, urgent care reports/EKG's, retirement records)? Report findings @ -Prior hospital admission was reviewed Differential Diagnosis (chest pain, altered mental status, abdominal pain women, abdominal pain men, vaginal bleeding, weakness, fever, dyspnea, syncope, headache, dizziness, GI bleed, back pain, seizure, CVA, palpatations, mental health, musculoskeletal)? @ -Differential Musculoskeletal Muscular strain, contusion, ligament sprain, fracture, arthritis, septic arthritis, bursitis, cellulitis, muscle spasm, nerve compression, DVT, arterial occlusion, herpes zoster, electrolyte abnormality, tumor.... This is not meant to be in all inclusive list EKG interpreted by me (3pts min.). @ -EKG at 1159 shows sinus tachycardia with occasional PVCs rate 102, NV 150, QRS 90, QTQTc [id number], EKG comparable to prior EKG X-rays interpreted by me (1pt min.). @ -None done CT interpreted by me (1pt min.). @ -None done U/S interpreted by me (1pt. min.). @ -None done What testing was considered but not performed or refused? (CT, X-rays, U/S, labs)? Why? @ -None What meds were considered but not given or refused? Why? @ -None Did you discuss the management of the patient with other professionals (professionals i.e. , PA, CAR DISTRIBUTOR, lab, RT, psych nurse, social group worker, clinical appeals rn, teacher, desk officer, case mgr)? Give summary @ -Yes management of this patient was discussed with her primary care provider and vascular provider quality control assistant who both agreed that patient can follow up on outpatient basis Was smoking cessation discussed for >3mins.? @ -Smoking cessation was discussed Was critical care preformed (if so, how long)? @ -No Were there social determinants of health that impacted care today? How? (Homelessness, low income, unemployed, alcoholism, drug addiction, transportation, low edu. Level, literacy, decrease access to med. care, alf, rehab)? @ -No Was there de-escalation of care discussed even if they declined (Discuss DNR or withdrawal of care, Hospice)? DNR status @ -No What co-morbidities impacted this encounter? (DM, HTN, Smoking, COPD, CAD, Can cer, CVA, ARF, Chemo, Hep., AIDS, mental health diagnosis, sleep apnea, morbid obesity)? @ -None Was patient admitted / discharged? Hospital course, mention meds given and route, prescriptions, significant lab abnormalities, going to OR and other pertinent info. @ -Discharged. Patient presented to emergency department with chief complaint of worsening cyanosis of her left fingertips. She was recently admitted to the hospital for this and given a vascular outpatient follow-up. Patient has been on Xarelto, Nitropaste, [place] for this. The patient was evaluated by Dr. Pepe. Dr. Pepe discuss the case with Dr. West and Dr. Noriega who both agreed that this can be managed as an outpatient. Patient is instructed to call the vascular center tomorrow and continue on the treatment regimen that she is currently on. Patient discharged in stable condition. Case discussed with my attending Dr. Pepe Undiagnosed new problem with uncertain prognosis? @ -No Drug Therapy requiring intensive monitoring for toxicity (Heparin, Nitro, Insulin, Cardizem)? @ -No Were any procedures done? @ -No Diagnosis/symptom? @ -Buerger disease Acute, or Chronic, or Acute on Chronic? @ -Acute Uncomplicated (without systemic symptoms) or Complicated (systemic symptoms)? @ -Uncomplicated Side effects of treatment? @ -No Exacerbation, Progression, or Severe Exacerbation? @ -No Poses a threat to life or bodily function? How? (Chest pain, [place], [place], pneumonia, PE, COPD, DKA, ARF, appy, cholecystitis, CVA, Diverticulitis, Homicidal, Suicidal, threat to staff... and all critical care pts) @ -No Disposition Clinical Impression: Mcghee's disease Disposition: HOME SELF-CARE Condition: Stable Additional Instructions: Call vascular tomorrow to set up a follow-up. Please return to the Emergency Department if symptoms worsen or any other concerns. Is patient prescribed a controlled substance at d/c from ED?: No Referrals: Mathew West MD [Primary Care Provider] - 1-2 days Time of Disposition: 13:13
== END 2022-09-27 13:53 | disposition home or self-care (01) ==
LOC: EC 11:30
DX: N02.8 Recurrent and persistent hematuria with other morphologic changes (principal); I10 Essential (primary) hypertension; J44.9 Chronic obstructive pulmonary disease, unspecified; M19.90 Unspecified osteoarthritis, unspecified site; F17.200 Nicotine dependence, unspecified, uncomplicated; Z88.2 Allergy status to sulfonamides; Z79.899 Other long term (current) drug therapy
CPT/HCPCS: 99284

== ENCOUNTER → 2022-10-16 | Day surgery (SDC) | payer BC, MEDICARE ==
[~2022-10-16] MED LIST changes: +ALPRAZolam 0.25 MG TAB PO PRN; +ALPRAZolam 0.5 MG TAB PO PRN; +ASPIRIN 325 MG TAB PO PRN; +HEPARIN SODIUM,PORCINE 10,000 UNIT in SODIUM CHLORIDE 0.9% 1,000 ML IRRIGATION PRN; +HEPARIN SODIUM,PORCINE 2,500 UNIT in SODIUM CHLORIDE 0.9% 250 ML IRRIGATION PRN; +HEPARIN SODIUM,PORCINE 5,000 UNIT/ML 1 ML VIAL ONE; +HYDROcodone/APAP 5-325MG 1 EACH TAB ONE; +HYDROmorphone (PF) 1 MG/ML ONE; +IOPAMIDOL-370 100ML BTL INJ ONE; +KETAMINE 10 MG/ML 20 ML VIAL ONE; -LACTATED RINGERS 1,000 ML IV SCH; +LIDOCAINE 1% INJ 10MG/ML (20 ML MDV) ONE; +LIDOCAINE 1% INJ 10MG/ML (20 ML MDV) SQ ONE; +MIDAZOLAM 2 MG/2 ML VIAL ONE; +PHENYLEPHRINE-0.9% NACL SYG 1,000 MCG/10 ML SYRINGE ONE; +PROPOFOL 10 MG/ML 20 ML VIAL IV ONE; +SODIUM CHLORIDE 0.9% 1,000 ML in EMPTY BAG 1 BAG IV ONE; +ZOLPIDEM 5 MG TAB PO PRN; +fentaNYL (PF) 50 MCG/ML 2 ML AMP ONE
[2022-10-16 09:19] VITALS: TEMP 98.5
--- NOTE | 2022-10-16 11:54 | IR ---
EXAMINATION TYPE: IR stent intravas non coronary DATE OF EXAM: 10/16/2022 COMPARISON: NONE HISTORY: Fluoroscopy time. Fluoroscopy was provided to the referring clinician.
--- NOTE | 2022-10-16 11:58 | P.OP ---
Date of Procedure: 10/16/22 Preoperative Diagnosis: High-grade left subclavian artery stenosis with tissue loss tip of the third digit. Postoperative Diagnosis: Same. Procedure(s) Performed: 1: Ultrasound-guided cannulation left brachial artery. 2: Left subclavian angiogram. 3: Balloon dilation left subclavian artery. 4: Covered stent placement left subclavian artery utilizing 6 mm x 37 mm Lifestream stent. Anesthesia: MAC, local (1% Xylocaine.) Surgeon: Rudi Chan Estimated Blood Loss (ml): 5 Pathology: none sent Condition: stable Disposition: no change Indications for Procedure: Patient is a 67-year-old female presented with ischemic symptoms over left hand. Significant systolic blood pressure gradient was noted between the 2 upper extremities. Patient did undergo CT angiogram which demonstrated high-grade left subclavian artery stenosis. Because the patient's symptoms patient is now offered percutaneous intervention. The procedure, risk and benefits were discussed. All questions were answered to patient's satisfaction. Consent form was signed. Operative Findings: High-grade left subclavian artery stenosis. Description of Procedure: Patient is brought to the special procedure suite. She was placed in the supine position. She received attended anesthesia delivered by the department of anesthesiology. Patient's left upper extremity was sterilely prepped and draped in usual manner. Utilizing ultrasound the brachial artery was identified. 1% Xylocaine was utilized for local anesthesia tissues overlying the brachial artery just proximal to the antecubital fossa. Through this anesthetized area and with the aid of ultrasound a micropuncture needle was utilized to cannulate the artery. Once cannulated Softip guidewire is advanced into the artery. The micropuncture sheath and dilator were exchanged over the wire. Dilator and wire were withdrawn. A 0.035 inch J-tipped guidewire was advanced through the sheath. The sheath was withdrawn and a 6-[place] sheath was placed. The sheath was flushed with heparinized saline solution. [place] wire and angled glide catheter were advanced in combination were utilized to cross the stenosis. The catheter was removed and replaced with a UBF catheter and guidewire was withdrawn. Utilizing the power injector left subclavian angiogram was performed. This demonstrated a high-grade stenosis at the origin of the subclavian artery. The patient was systemically heparinized with 2500 units of heparin. The stenosis was severe enough to give concern to a balloon/stent combination would not be able passed through this stenotic area as such a 4 mm x 4 cm balloon angioplasty catheter was utilized to balloon dilate this segment. The UBF catheter was exchanged for the balloon dilation catheter and repeat angiogram was performed. Utilizing roadmapping technique the guidewire was advanced through the angiographic catheter which was then removed and a 6 mm x 37 mm Lifestream covered stent was selected and advanced into proper position and deployed. The artery had measured approximately 5.6 mm in diameter and the inflated to 12 colin for gained of diameter of the stent to be left in place. Repeat angiogram utilizing the UBF catheter was performed which demonstrated the stenotic segment to be completely relieved of any stenosis with good flow through the subclavian artery. The left internal mammary artery remained widely patent. With the above findings noted catheter guidewire and sheath were withdrawn and pressure was held at the puncture site until all evidence of bleeding ceased. Patient tolerated the procedure well and was returned to the outpatient surgical area in satisfactory and stable condition. Plan - Discharge Summary Discharge Rx Participant: Yes New Discharge Prescriptions: No Action Gabapentin [Neurontin] 300 mg PO BID Zolpidem [Ambien] 5 mg PO HS PRN PRN Reason: Insomnia HYDROcodone/APAP 5-325MG [[place] 5-325] 1 tab PO TID PRN PRN Reason: Pain Furosemide [Lasix] 20 mg PO DAILY PRN PRN Reason: Edema Aspirin 81 mg PO DAILY tab amLODIPine [Norvasc] 10 mg PO DAILY Famotidine [Pepcid] 20 mg PO DAILY Potassium Chloride ER [K-Dur 10] 10 meq PO DAILY PRN PRN Reason: TAKE WHEN TAKING LASIX Losartan Potassium 100 mg PO DAILY Atorvastatin [Lipitor] 20 mg PO DAILY #90 tab Nitroglycerin Oint [Nitro-Bid Oint] 1 inch TOPICAL Q8HR #30 packet Rivaroxaban [Xarelto] 2.5 mg PO BID #60 tab Discharge Medication List Gabapentin [Neurontin] 300 mg PO BID 08/10/17 [History] HYDROcodone/APAP 5-325MG [[place] 5-325] 1 tab PO TID PRN 08/06/20 [History] Zolpidem [Ambien] 5 mg PO HS PRN 08/06/20 [History] Famotidine [Pepcid] 20 mg PO DAILY 06/05/22 [History] Furosemide [Lasix] 20 mg PO DAILY PRN 06/05/22 [History] Losartan Potassium 100 mg PO DAILY 06/05/22 [History] Potassium Chloride ER [K-Dur 10] 10 meq PO DAILY PRN 06/05/22 [History] amLODIPine [Norvasc] 10 mg PO DAILY 06/05/22 [History] Aspirin 81 mg PO DAILY tab 09/19/22 [Rx] Atorvastatin [Lipitor] 20 mg PO DAILY #90 tab 09/19/22 [Rx] Nitroglycerin Oint [Nitro-Bid Oint] 1 inch TOPICAL Q8HR #30 packet 09/19/22 [Rx] Rivaroxaban [Xarelto] 2.5 mg PO BID #60 tab 09/19/22 [Rx]
[2022-10-16 13:40] VITALS: BP 134/64; PULSE 76; RESP 18
== END ==
LOC: CATHCVL 08:46
PROVIDERS: ATTEND Surgery
DX: I77.1 Stricture of artery (principal); I10 Essential (primary) hypertension; E78.5 Hyperlipidemia, unspecified; J44.9 Chronic obstructive pulmonary disease, unspecified; F17.200 Nicotine dependence, unspecified, uncomplicated; M19.90 Unspecified osteoarthritis, unspecified site; K44.9 Diaphragmatic hernia without obstruction or gangrene; Z79.899 Other long term (current) drug therapy
CPT/HCPCS: 37236; C1894; C1725; C1769 ×2; C1874; J2250; J1644; J2001; J3010; J1170; J2370; J2704; Q9967

== ENCOUNTER → 2022-12-02 | Outpatient (CLI) | payer BC ==
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
== END | disposition home or self-care (01) ==
LOC: RADCTMAIN 11:04
PROVIDERS: ATTEND Internal Medicine
DX: Z12.2 Encounter for screening for malignant neoplasm of respiratory organs (principal); R91.1 Solitary pulmonary nodule; F17.210 Nicotine dependence, cigarettes, uncomplicated
CPT/HCPCS: 71271

== ENCOUNTER 2023-01-06 18:43 | Emergency (ER) | payer OTHER, BC ==
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
[2023-01-06 20:21] LABS: Basophils % (A) 0 %; Eosinophils # (A) 0.1 k/uL (0-0.7); Eosinophils % (A) 1 %; HCT 47.9 % (34.0-46.0); HGB 16.2 gm/dL (11.4-16.0); Lymphocytes # (A) 1.2 k/uL (1.0-4.8); Lymphocytes % (A) 8 %; MCH 31.5 pg (25.0-35.0); MCHC 33.8 g/dL (31.0-37.0); Mean Platelet Volume 8.1; Monocytes # (A) 0.6 k/uL (0-1.0); Monocytes % (A) 4 %; Neutrophils # (A) 12.4 k/uL (1.3-7.7); Neutrophils % (A) 86 %; Platelet Count 264 k/uL (150-450); RBC 5.15 m/uL (3.80-5.40); RDW 12.7 % (11.5-15.5); WBC 14.4 k/uL (3.8-10.6)
[2023-01-06 20:31] LABS: Partial Thromboplastin Time 24.9 sec (22.0-30.0); Prothrombin Time 10.5 sec (9.0-12.0)
[2023-01-06 20:33] LABS: ALT 17 U/L (4-34); AST 46 U/L (14-36); African American GFR (CKD) >90 (>60 ml/min/1.73 sqM); Albumin 4.7 g/dL (3.5-5.0); Alcohol <10 mg/dL; Alkaline Phosphatase 107 U/L (38-126); Anion Gap 11 mmol/L; Blood Urea Nitrogen 15 mg/dL (7-17); Calcium 9.3 mg/dL (8.4-10.2); Carbon Dioxide 19 mmol/L (22-30); Chloride 107 mmol/L (98-107); Glucose 128 mg/dL (74-99); Non-African American GFR(CKD) >90 (>60 ml/min/1.73 sqM); Sodium 137 mmol/L (137-145); Total Bilirubin 0.9 mg/dL (0.2-1.3); Total Protein 8.2 g/dL (6.3-8.2)
[2023-01-06] MEDS ORDERED: MORPHINE SULFATE 4 MG/ML SYRINGE IVP STA (20:47)
[2023-01-06 20:56] LABS: Potassium 5.1 mmol/L (3.5-5.1)
[2023-01-06 21:02] LABS: Amphetamine Screen,Urine Not Detected (NotDetected); Barbiturate Screen,Urine Not Detected (NotDetected); Benzodiazepines Screen,Urine Not Detected (NotDetected); Cocaine Screen,Urine Not Detected (NotDetected); Methadone Screen, Urine Not Detected (NotDetected); Opiate Screen,Urine Not Detected (NotDetected); Oxycodone Screen, Urine Detected (NotDetected); Phencyclidine Screen,Urine Not Detected (NotDetected); Tricyclic Antidepressant,Urine Not Detected (NotDetected); Urn Cannabinoid Scrn Not Detected (NotDetected)
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
[2023-01-06 22:19] VITALS: BP 135/65; PULSE 94; RESP 20; TEMP 97.6
[2023-01-06] MEDS ORDERED: HYDROmorphone 1 MG/ML 1 ML SYRINGE IVP STA (22:35)
== END 2023-01-06 22:48 | disposition home or self-care (01) ==
LOC: EC 18:43
DX: S20.219A Contusion of unspecified front wall of thorax, initial encounter (principal); G89.29 Other chronic pain; J44.9 Chronic obstructive pulmonary disease, unspecified; I10 Essential (primary) hypertension; M19.90 Unspecified osteoarthritis, unspecified site; F17.200 Nicotine dependence, unspecified, uncomplicated; Z79.1 Long term (current) use of non-steroidal anti-inflammatories (NSAID); Z79.899 Other long term (current) drug therapy; Z88.2 Allergy status to sulfonamides; V89.2XXA Person injured in unspecified motor-vehicle accident, traffic, initial encounter; Y92.411 Interstate highway as the place of occurrence of the external cause
CPT/HCPCS: 36415; 93005; 86900; 86901; 80053; 84484; 85025; 85610; 85730; 86850; 80306; 80320; 71260; 74177; 99285; 96374; 96375; J2270; J1170; Q9967

== ENCOUNTER → 2024-01-14 | Outpatient (CLI) | payer BC ==
--- NOTE | 2024-02-10 14:46 | US ---
EXAMINATION TYPE: US carotid duplex BILAT DATE OF EXAM: 01/14/2024 COMPARISON: Carotid ultrasound 09/18/2022 CLINICAL INDICATION: Female, 68 years old with history of stenosis; TECHNIQUE: Carotid duplex ultrasound examination. Indirect Doppler criteria was utilized. FINDINGS: EXAM MEASUREMENTS: RIGHT: Peak Systolic Velocity (PSV) cm/sec ----- Right CCA: 52.2 ----- Right ICA: 170.7 ----- Right ECA: 129.0 ICA/CCA ratio: 3.3 RIGHT: End Diastole cm/sec ----- Right CCA: 15.7 ----- Right ICA: 52.4 ----- Right ECA: 14.9 LEFT: Peak Systolic Velocity (PSV) cm/sec ----- Left CCA: 80.9 ----- Left ICA: 135.0 ----- Left ECA: 119.0 ICA/CCA ratio: 1.7 LEFT: End Diastole cm/sec ----- Left CCA: 23.7 ----- Left ICA: 34.4 ----- Left ECA: 18.7 VERTEBRALS (direction of flow): Right Vertebral: Antegrade Left Vertebral: Antegrade Rhythm: Normal Right ICA/CCA ratio 3.3 IMPRESSION: Moderate atherosclerotic plaque bilaterally with approximately 50-69% stenosis at the origin of the r ight internal carotid artery. Less than 50% stenosis of the origin of the left internal carotid arter y. This can be further evaluated with CTA or MRA of the neck as clinically indicated. Criteria for Assigning % of Stenosis / Diameter reduction (Estimation based on the indirect measurements of the internal carotid artery velocities (ICA PSV). 1. Normal (no stenosis)=ICA PSV < 125 cm/s: ratio < 2.0: ICA EDV<40 cm/s. 2. Less than 50% stenosis=ICA PSV < 125 cm/s: ratio < 2.0: ICA EDV<40 cm/s. 3. 50 to 69% stenosis=ICA PSV of 125 to 230 cm/s: ration 2.0 ? 4.0: ICA EDV 40-100 cm/s. 4. Greater than 70% stenosis to near occlusion= ICA PSV > 230 cm/s: ratio > 4.0: ICA EDV > 100 cm/s. 5. Near occlusion= ICA PSV velocities may be low or undetectable: variable ratio and ICA EDV. 6. Total occlusion=unable to detect flow.
--- NOTE | 2024-02-11 12:38 | CA ---
Transthoracic Echo Report Name: Rajwinder Diallo Age: 68 Gender: F : 1955 Exam Date: 01/14/2024 14:18 Exam Location: [facility] Ht (in): 67 Wt (lb): 184 Ordering Physician: Attending/Referring Phys: Court Registry Officer Isabel Parada RDCS Procedure CPT: Indications: Cardiac Hx: Technical Quality: Good Contrast 1: Total Dose (mL): Contrast 2: Total Dose (mL): MEASUREMENTS (Male / Female) Normal Values 2D ECHO LV Diastolic Diameter PLAX 4.6 cm 4.2 - 5.9 / 3.9 - 5.3 cm LV Systolic Diameter PLAX 2.8 cm IVS Diastolic Thickness 1.0 cm 0.6 - 1.0 / 0.6 - 0.9 cm LVPW Diastolic Thickness 0.9 cm 0.6 - 1.0 / 0.6 - 0.9 cm LV Relative Wall Thickness 0.4 LVOT Diameter 2.0 cm LV Diastolic Volume MOD BP 89.0 cm??? 67 - 155 / 56 - 104 cm??? LV Systolic Volume MOD BP 35.8 cm??? 22 - 58 / 19 - 49 cm??? LV Ejection Fraction MOD BP 59.8 % >= 55 % LV Cardiac Index MOD BP 1748.8 cm???/min???m??? LV Diastolic Volume MOD 4C 90.6 cm??? LV Systolic Volume MOD 4C 33.7 cm??? LV Ejection Fraction MOD 4C 62.8 % LV Cardiac Index MOD 4C 1871.8 cm???/min???m??? LV Diastolic Length 4C 7.6 cm LV Systolic Length 4C 6.1 cm LV Diastolic Volume MOD 2C 86.2 cm??? LV Systolic Volume MOD 2C 32.7 cm??? LV Ejection Fraction MOD 2C 62.1 % LV Cardiac Index MOD 2C 1760.2 cm???/min???m??? LV Diastolic Length 2C 7.3 cm LV Systolic Length 2C 5.1 cm LA Volume 40.9 cm??? 18 - 58 / 22 - 52 cm??? LA Volume Index 20.4 cm???/m??? 16 - 28 cm???/m??? DOPPLER AV Peak Velocity 121.8 cm/s AV Peak Gradient 5.9 mmHg AV Mean Velocity 80.3 cm/s AV Mean Gradient 3.0 mmHg AV Velocity Time Integral 27.1 cm LVOT Peak Velocity 98.3 cm/s LVOT Peak Gradient 3.9 mmHg LVOT Velocity Time Integral 23.5 cm LVOT Stroke Volume 76.9 cm??? LVOT Stroke Volume Index 39.4 ml/m??? LVOT Cardiac Index 2528.1 cm???/min???m??? AV Area Cont Eq vti 2.8 cm??? AV Area Cont Eq pk 2.6 cm??? MV Area PHT 3.9 cm??? Mitral E Point Velocity 85.2 cm/s Mitral A Point Velocity 83.2 cm/s Mitral E to A Ratio 1.0 MV Deceleration Time 193.1 ms TR Peak Velocity 261.9 cm/s TR Peak Gradient 27.4 mmHg Right Atrial Pressure 10.0 mmHg Pulmonary Artery Systolic Pressu 37.4 mmHg Right Ventricular Systolic Press 37.4 mmHg PV Peak Velocity 75.8 cm/s PV Peak Gradient 2.3 mmHg FINDINGS Left Ventricle Left ventricular ejection fraction is estimated at 55-60 %. Mildly increased septal wall thickness. Left ventricular cavity size normal. No obvious regional wall motion abnormalities. Right Ventricle Normal right ventricular size and function. Mildly elevated right ventricular systolic pressure. Right Atrium Normal right atrial size. Left Atrium Normal left atrial size. Mitral Valve Structurally normal mitral valve. No evidence for mitral valve prolapse. No mitral stenosis. Mild mitral regurgitation. Aortic Valve Trileaflet aortic valve. No aortic stenosis. Trace aortic regurgitation. Tricuspid Valve Structurally normal tricuspid valve. No tricuspid stenosis. Mild tricuspid regurgitation. Pulmonic Valve Structurally normal pulmonic valve. No pulmonic stenosis. Trace pulmonic regurgitation. Pericardium No pericardial effusion. Aorta Normal size aortic root and proximal ascending aorta. CONCLUSIONS Left ventricular ejection fraction 55-60% RVSP 37 Mild mitral regurgitation Trace aortic regurgitation Mild tricuspid regurgitation Previewed by: Dr. Giles Keene DO (Electronically Signed) Final Date: 15 January 2024 12:29
== END | disposition home or self-care (01) ==
LOC: RADBDWWP 10:02
PROVIDERS: ATTEND Internal Medicine
DX: I08.3 Combined rheumatic disorders of mitral, aortic and tricuspid valves (principal); M85.851 Other specified disorders of bone density and structure, right thigh; I73.9 Peripheral vascular disease, unspecified; R00.1 Bradycardia, unspecified; I65.23 Occlusion and stenosis of bilateral carotid arteries; I70.90 Unspecified atherosclerosis
CPT/HCPCS: 93306; 93880

== ENCOUNTER → 2024-02-03 | Outpatient (CLI) | payer BC ==
[2024-02-03 13:02] VITALS: BP 133/91; PULSE 80; RESP 19; TEMP 97.6
--- NOTE | 2024-02-03 14:14 | P.PAINPG ---
PQRS Measure Charge Sheet Comment: A 68 yr old female with a history of severe and chronic LBP since 2016 s/p fall secondary to radiculopathy, spondylosis and facet arthropathy without myelopathy presents today for evaluation. Pain level is provoked at 6 /10 in intensity, constant, predominantly axial, localized in the R lower lumbar spine, sharp in character w occasional shooting towards the R knee. Pain is provoked by PT x 4 sessions in May 2022 which provoked pain. Pain is alleviated with physician guided home exercise regimen 4 times weekly since May 2022, heat, ice, medications, using a pillow, repositioning and rest. Interventional pain procedures completed include R TFESI L4-L5 x1 Patient is currently on [place] from Dr West Patient denies any side effects of the medication(s), denies excessive drowsiness or sleepiness, denies suicidal ideation and reports that the current pain medication is helping to control the pain and improve activities of daily living. Patient denies any motor or sensory deficits. Patient denies any fever or night sweats, denies any change in the bowel movements or urination. Physical Examination: -Constitutional: Cooperative. Not in acute distress . - Neurologic: Cranial nerve II to XII intact. No focal neurological deficits. - Psychatric: Alert & oriented x 3. Matching mood & appropriate affect. Judgment and insight intact. - Musculoskeletal: Cervical spine: Muscle bulk/ tone/ strength in the bilateral upper extremities normal Vertebral body tenderness to palpation over Spurling test positive Distraction test positive Facet loading test positive Thoracic spine Muscle bulk / tone/ strength in the bilateral paraspinal muscles normal Vertebral body tender to palpation over Facet loading test positive Lumbar spine: Motor bulk/ tone/ strength lower extremities , thigh and legs : 5/5 Deep tendon reflexes : Normal Knee Jerk. Normal Ankle Jerk . Vertebral body tenderness to palpation over L4 Vasquez test positive BL L4-L5 Lumbar Facet Loading Test positive Straight Leg Raise: positive at 30 degrees right side/ left side Gaenslen's Test positive Sacral spine : Severe tenderness over the Sacroiliac joint: right side / left side Range of motion: Flexion of the lumbar spine <60 degrees Range of motion: Extension of the lumbar spine <20 degrees Gaenslen's Test positive Marla test: positive right side / left side Thigh Thrust Test Sacral Thrust Test Imaging: MRI non contrast lumbar spine from 04/22/22 reviewed Assessment and plan: Chronic LBP secondary to lumbar DDD, spondylosis with facet arthropathy without myelopathy Recommendation of R TFESI L4-L5 #1. Risks, benefits of procedure discussed and pt verbalized understanding. Anticoagulant use or medical history of diabetes, will obtain medical clearance for Xarelto from Dr West. All patient questions answered I have spent less than 30 minutes on patient care today. Dr Chiang was available by phone for the evaluation of this patient. The time was used to review the medical records including relevant urine studies and Prescription history (MAPs), review of the available imaging, evaluation and examination of the patient, coordination of care with the medical staff and if applicable referring physicians, as well as creation of the medical record PQRS Narrative: Smoking Status Current every day smoker Hx Alcohol Use (MH) No Home Medications: Ambulatory Orders Gabapentin [Neurontin] 300 mg PO BID 08/10/17 HYDROcodone/APAP 5-325MG [[place] 5-325] 1 tab PO TID PRN 08/06/20 Zolpidem [Ambien] 5 mg PO HS PRN 08/06/20 Famotidine [Pepcid] 20 mg PO DAILY 06/05/22 Furosemide [Lasix] 20 mg PO DAILY PRN 06/05/22 Losartan Potassium 100 mg PO DAILY 06/05/22 Potassium Chloride ER [K-Dur 10] 10 meq PO DAILY PRN 06/05/22 amLODIPine [Norvasc] 10 mg PO DAILY 06/05/22 Aspirin 81 mg PO DAILY tab 09/19/22 Atorvastatin [Lipitor] 20 mg PO DAILY #90 tab 09/19/22 Nitroglycerin Oint [Nitro-Bid Oint] 1 inch TOPICAL Q8HR #30 packet 09/19/22 Rivaroxaban [Xarelto] 2.5 mg PO BID #60 tab 09/19/22 Controlled Substance Measures - Controlled Substance Measures Is patient prescribed a controlled substance at discharge?: No
== END ==
LOC: PNWHC3 12:38
PROVIDERS: ATTEND Specialist
DX: M54.16 Radiculopathy, lumbar region
CPT/HCPCS: 99211

== ENCOUNTER → 2024-03-08 | Outpatient (CLI) | payer BC ==
[2024-03-08 12:24] LABS: African American GFR (CKD) >90 (>60 ml/min/1.73 sqM); Blood Urea Nitrogen 16 mg/dL (7-17); Non-African American GFR(CKD) >90 (>60 ml/min/1.73 sqM)
--- NOTE | 2024-03-08 13:27 | CT ---
EXAMINATION TYPE: CT angio neck CT DLP: 569.2 mGycm, Automated exposure control for dose reduction was used. DATE OF EXAM: 03/08/2024 1:02 PM COMPARISON: Carotid ultrasound 01/14/2024, 09/18/2022. CLINICAL INDICATION:Female, 68 years old with history of R10.9 UNSPECIFIED ABDOMINAL PAIN; PHH, f/u o n Carotid stenosis TECHNIQUE: Axially acquired helical CT angiogram of the neck was obtained before and after contrast u tilizing 75 cc of Isovue-370 administered intravenously. Axial images are supplemented with 3D recons tructions which were post-processed at an independent workstation. NASCET criteria used. FINDINGS: CTA NECK: Right Carotid System: The common carotid artery and external carotid artery are patent. Moderate calcified and noncalcified plaque identified within the carotid bifurcations extending into the proximal internal carotid arter y. There is approximately 60% stenosis involving the proximal right internal carotid artery secondary to noncalcified plaque. Mild stenosis of the origin of the right external carotid artery secondary t o noncalcified plaque. The remaining portions of the internal carotid artery demonstrate normal size without significant narrowing. Left Carotid System: The common carotid artery and external carotid artery are patent. There is mild calcified plaque at t he carotid bifurcation. Approximately 10% % stenosis at the origin of the internal carotid artery. Th e remaining portions of the internal carotid artery demonstrate normal size without significant narro wing. Vertebral arteries are patent without evidence hemodynamically significant stenosis. Diminutive appea selvin throughout the left vertebral artery. There is a three-vessel aortic arch. Left subclavian artery stent identified with high-grade stenosis secondary to calcified plaque at its distal end (series 14, image 52). The origins of the remaining great vessels are patent. No evidence of hemodynamically significant stenosis. Paraseptal and centrilobular emphysematous changes. Degenerative changes of the cervical spine. IMPRESSION: 1. No evidence of dissection of the cervical internal carotid arteries or vertebral arteries. Approxi mately 60% stenosis within the proximal right internal carotid artery secondary to noncalcified plaqu e. Approximately 10% stenosis at the origin of the left internal carotid artery secondary to calcifie d plaque. Additionally there is high-grade stenosis at the origin of the right external carotid arter y secondary to noncalcified plaque. 2. Left subclavian artery stent is identified with high-grade stenosis at its distal end secondary to noncalcified plaque. [facility], , 03/08/2024 1:25 PM
== END | disposition home or self-care (01) ==
LOC: RADCTMAIN 11:45
PROVIDERS: ATTEND Internal Medicine
DX: I65.23 Occlusion and stenosis of bilateral carotid arteries (principal)
CPT/HCPCS: 36415; 70498; 82565; 84520